=== PATIENT | male | born 1950 | race Caucasian/White ===

== ENCOUNTER → 2023-05-20 10:10 | Outpatient (CLI) | payer MEDICARE, OTHER, SELFPAY ==
--- NOTE | ~2023-05-20 | CT_ITS ---
EXAMINATION: CT lung screening DATE: 05/20/2023 10:31 INDICATION: Z87.891 - Personal history of nicotine dependence TECHNIQUE: Computed tomography (CT) of the chest was performed without intravenous contrast. Addition al 3D reconstructions utilizing coronal maximum intensity projection (MIP) were performed. Automated exposure control and iterative reconstruction technique were employed. The dose-length product was 61 .90 mGy-cm. COMPARISON: None FINDINGS: Mild to moderate emphysema with bronchiectasis and associated pleural parenchymal scarring at the pos terior aspect of the bilateral upper lobes. There is also bandlike atelectasis/scarring at the medial aspect of the right middle lobe. There are geographic regions of tree-in-bud opacities with multiple small centrilobular nodules scattered throughout all of the globes in both lungs consistent with end obronchial spread of disease including atypical pneumonia such as ANALISA. More discrete 8 mm ovoid perif issural nodule along the anterobasilar segment of the right lower lobe. 9 x 7 mm spiculated nodule al chloe a band of atelectasis/scarring in the anterior segment of the left upper lobe. Couple additional 4-5 mm nodules in the apical segment of the left upper lobe. No pulmonary edema or pleural effusion. Heart size is normal. Atherosclerotic coronary artery calcific lesion. No pericardial effusion. Thora cic aorta is normal in caliber. No pathologically enlarged thoracic lymphadenopathy. Gallstone at the neck of the otherwise normal-appearing nondilated gallbladder. Scattered dystrophic calcifications t hroughout the pancreas consistent with sequela of chronic pancreatitis. Mild S-shaped curvature of th e thoracic spine with moderate spondylosis. IMPRESSION: 1. Lung-RADS category 3: Probably benign. Further evaluation is recommended with noncontrast low-dose chest CT in 6 months. 2. Excessive scattered tree-in-bud opacities throughout both lungs consistent with endobronchial spre ad of disease including atypical pneumonia such as ANALISA. Reviewed, dictated and finalized at location L. IMPRESSION: 1. Lung-RADS category 3: Probably benign. Further evaluation is recommended wit h noncontrast low-dose chest CT in 6 months. 2. Excessive scattered tree-in-bud opacities throughout both lungs consistent w ith endobronchial spread of disease including atypical pneumonia such as ANALISA.
== END ==
PROVIDERS: PCP Nurse Practitioner Family; Visit Provider Nurse Practitioner Family
DX: Z12.2 Encounter for screening for malignant neoplasm of respiratory organs (principal); Z87.891 Personal history of nicotine dependence; R91.8 Other nonspecific abnormal finding of lung field
CPT/HCPCS: 71271

== ENCOUNTER → 2023-11-24 10:16 | Outpatient (CLI) | payer MEDICARE, OTHER, SELFPAY ==
--- NOTE | ~2023-11-24 | CT_ITS ---
EXAMINATION:CT chest high resolution wo co DATE: 11/24/2023 10:29 INDICATION: Pulmonary nodule. Other nonspecific abnormal finding in lung field. TECHNIQUE: Computed tomography (CT) of the chest was performed without intravenous contrast. Automate d exposure control and iterative reconstruction technique were employed. The dose-length product (DLP ) was 210.64 mGy-cm. COMPARISON: Chest CT 05/20/2023 FINDINGS: There is moderate emphysema. There is chronic scarring with cavitation at the lung apices. There are widespread centrilobular nodules and tree-in-bud opacities in the lungs. Again seen are sma ll airspace opacities with volume loss in right middle lobe and right lower lobe. There is a stable 9 mm nodule in right lower lobe, likely benign. There is a new 7 mm nodule in right middle lobe. There is a stable 14 mm nodule in right middle lobe. No pleural effusion. The heart size is normal. There are coronary artery calcifications. No pericardial effusion. There is a gallstone in the gallbladder, which is normal in size. Calcifications in the pancreas are consistent with chronic pancreatitis. Th ere is mild thoracic spondylosis. IMPRESSION: 1. Stable diffuse lung disease, likely chronic infection such as Mycobacterium avium intracellulare ( ANALISA). 2. New 7 mm nodule in right middle lobe, probably benign. Noncontrast low-dose chest CT is recommende d in 3-6 months. 3. Moderate emphysema. Reviewed, dictated and finalized at location A. [employer] IMPRESSION: 1. Stable diffuse lung disease, likely chronic infection such as Mycobacterium avium intracellulare (ANALISA). 2. New 7 mm nodule in right middle lobe, probably benign. Noncontrast low-dose chest CT is recommended in 3-6 months. 3. Moderate emphysema.
== END ==
PROVIDERS: PCP Nurse Practitioner Family; Visit Provider Nurse Practitioner Family
DX: R91.8 Other nonspecific abnormal finding of lung field (principal); J43.9 Emphysema, unspecified
CPT/HCPCS: 71250

== ENCOUNTER 2023-12-23 16:01 | Outpatient (CLI) | payer MEDICARE, OTHER, SELFPAY ==
[2023-12-25 11:44] LABS: NIL 0.02 IU/mL; Quantiferon TB Plus, 1T NEGATIVE (NEGATIVE)
== END 2023-12-23 16:02 | disposition home or self-care (01) ==
LOC: ANHLAB 16:09
PROVIDERS: PCP Nurse Practitioner Family; Visit Provider Internal Medicine Pulmonary Disease
DX: R91.8 Other nonspecific abnormal finding of lung field (principal)
CPT/HCPCS: 36415; 86480

== ENCOUNTER 2023-12-24 06:49 | Outpatient (CLI) | payer MEDICARE, OTHER, SELFPAY | END 2023-12-24 06:50 | disposition home or self-care (01) | PROVIDERS: PCP Nurse Practitioner Family; Visit Provider Internal Medicine Pulmonary Disease | DX: J90 Pleural effusion, not elsewhere classified (principal) | CPT/HCPCS: 87015; 87116; 87118; 87153; 87186; 87206 ==

== ENCOUNTER 2023-12-25 06:38 | Outpatient (CLI) | payer MEDICARE, OTHER, SELFPAY | END 2023-12-25 06:39 | disposition home or self-care (01) | LOC: ANHLAB 06:41 | PROVIDERS: PCP Nurse Practitioner Family; Visit Provider Internal Medicine Pulmonary Disease | DX: J90 Pleural effusion, not elsewhere classified (principal) | CPT/HCPCS: 87015; 87116; 87206 ==

== ENCOUNTER 2023-12-26 06:49 | Outpatient (CLI) | payer MEDICARE, OTHER, SELFPAY | END 2023-12-26 06:50 | disposition home or self-care (01) | LOC: ANHLAB 06:51 | PROVIDERS: PCP Nurse Practitioner Family; Visit Provider Internal Medicine Pulmonary Disease | DX: J90 Pleural effusion, not elsewhere classified (principal) | CPT/HCPCS: 87015; 87116; 87206 ==

== ENCOUNTER 2024-01-02 12:24 | Outpatient (CLI) | payer MEDICARE, OTHER, SELFPAY ==
[2024-01-02 13:26] LABS: Alveolar/Arterial O2 Gradient 34.1 mmHg; Carboxyhemoglobin 5.8 % THb (0-2.0); Fractional Inspired Oxygen 21 %; HCO3 ABG 27.6 mEq/l (22.0-26.0); Methemoglobin ABG 0.3 %THb (0-1.5); Oxygen Content ABG 19.6 %vol (16.0-22.0); Oxygen Saturation ABG 93.6 % (95.0-100.0); PCO2 ABG 41.7 mmHg (35.0-45.0); PO2 ABG 65.7 mmHg (80.0-100.0); PO2 FiO2 Ratio Arterial Blood 3.13 %; Reduced Hemoglobin 6.2 %THb (0-5.0); Total Hemoglobin 15.9 g/dL (12.0-18.0); pH ABG 7.438 (7.350-7.450)
[2024-01-02 14:07] LABS: Device ROOM AIR; Modified Allen's Test Pass; Oxyhemoglobin 87.7 % THb (90.0-100.0); Site Drawn RIGHT RADIAL
--- NOTE | 2024-01-03 14:34 | WPDSIXMINUTE ---
Six Minute Walk Procedure Procedure Performed Pulmonary Stress Test (6 min walk) Six Minute Walk Six Minute Walk: This is a 6 minute walk test. The test was performed and interpreted in accordance with the 2014 ERS/ATS task force guidelines. Findings: The patient's resting room air oxygen saturation measured by pulse oximetry was 95% and heart rate was 89 bpm. Patient ambulated for 335 meters and oxygen saturation remained 90 to 94%. Heart rate at the end of the study was 103 bpm. The patient did not qualify for supplemental oxygen at rest or with ambulation. There are no prior studies for comparison.
--- NOTE | 2024-01-03 14:36 | WPDPFTINT ---
PFT Procedure Performed PFT Procedure Performed Spirometry with Pre/Post Bronchodilator Plethysmography (Lung Vol) Diffusing Cap (DLCO) Flow Vol Loop PFT Interpretation This is a pulmonary function test with pre and post-bronchodilator spirometry, plethysmography and diffusing capacity. The test was performed and results interpreted in accordance with the 2019 and 2005 ATS/ERS Task Force guidelines respectively using the Global Lung Function Initiative-2012 reference equations. Patient demonstrated good effort and cooperation. Reproducibility criteria were met. The quality of the pre bronchodilator spirometry maneuver was Grade A and post bronchodilator spirometry maneuver was Grade A. Findings: Spirometry: There is decreased maximal expiratory airflow at all lung volumes with concave expiratory flow tracing. The contour the inspiratory flow tracing is normal. The pre bronchodilator FVC is 4.12 L, 104% predicted. The pre bronchodilator FEV1 is 2.02 L, 68% predicted. The pre bronchodilator FEV1: FVC ratio is 49%. The post bronchodilator FVC is 4.40 L, representing a 7% increase. The post bronchodilator FEV1 is 2.23 L, representing a 10% increase. The post bronchodilator FEV1: FVC ratio is 51%. Plethysmography: The total lung capacity is 8.84 L, 133% predicted. The functional residual capacity is 6.25 L, 178% predicted. The residual volume is 4.46 L, 188% predicted. The residual volume: Total lung capacity ratio is 50%. Diffusing capacity: The diffusing capacity unadjusted for hemoglobin and carboxyhemoglobin is 16.9, 67% predicted. The diffusing capacity adjusted for alveolar volume is 3.22, 80% predicted. Resting room air arterial blood gas: pH 7.44, PaCO2 42, PaO2 66. Impression: There is a moderate obstructive abnormality. There is no significant improvement after inhaling a single dose of albuterol. The increase in residual volume to total lung volume ratio is consistent with hyperinflation from an obstructive abnormality. The diffusing capacity unadjusted for hemoglobin and carboxyhemoglobin is mildly decreased and normalizes when adjusted for alveolar volume. The resting room air arterial blood gas demonstrates a normal pH and PaCO2 with a PO2 below the lower limit of normal for his age but not low enough to qualify for supplemental oxygen. There are no prior studies for comparison
== END 2024-01-02 12:25 | disposition home or self-care (01) ==
LOC: ANHPFT 12:25
PROVIDERS: PCP Nurse Practitioner Family; Visit Provider Internal Medicine Pulmonary Disease
DX: J44.9 Chronic obstructive pulmonary disease, unspecified (principal)
CPT/HCPCS: 36600; 82375; 82805; 83050; 94060; 94618; 94726; 94729

== ENCOUNTER 2024-02-23 10:02 | Outpatient (CLI) | payer MEDICARE, OTHER, SELFPAY ==
--- NOTE | ~2024-02-23 | CT_ITS ---
CT Scan of the Chest without Contrast: Clinical Indication: Abnormal finding of lung field Technique: Contiguous sections were acquired throughout the chest without intravenous contrast. Dose reduction technique was used on this scan by utilizing automated exposure control and iterative recon struction technique. The dose-length product (DLP) was 193.25 mGy-cm. COMPARISON: 11/24/2023 Findings: There is no evidence of any significant mediastinal, hilar or axillary lymphadenopathy. The mediastin al soft tissues appear normal. There is no evidence of pleural or pericardial effusion. There is moderate to advanced emphysema. Scattered tree-in-bud opacities throughout both lungs are es sentially stable from prior exam, compatible with extensive small infection, especially in the lower lobe/lung bases. Areas of peripheral presumed scarring and probable chronic right middle lobe scarrin g are also stable from prior exam. Stable lung nodules noted. Images through the upper abdomen reveal cholelithiasis and pancreatic calcifications consistent with chronic pancreatitis. Impression: Overall, no significant change from prior exam. Extensive acute on chronic small airways infection wi th additional areas of chronic peripheral scarring. Moderate to advanced emphysema. Cholelithiasis. Chronic pancreatitis. Reviewed, dictated and finalized at location . Impression: Overall, no significant change from prior exam. Extensive acute on chronic smal l airways infection with additional areas of chronic peripheral scarring. Moderate to advanced emphysema. Cholelithiasis. Chronic pancreatitis.
== END 2024-02-23 10:03 | disposition home or self-care (01) ==
PROVIDERS: PCP Nurse Practitioner Family; Visit Provider Internal Medicine Pulmonary Disease
DX: R91.8 Other nonspecific abnormal finding of lung field (principal); K80.20 Calculus of gallbladder without cholecystitis without obstruction; J43.9 Emphysema, unspecified; K86.1 Other chronic pancreatitis
CPT/HCPCS: 71250

== ENCOUNTER 2025-05-29 17:00 | Inpatient (IN) | payer MEDICARE, OTHER, SELFPAY ==
[2025-05-29] VITALS (41 sets, daily range): BP systolic 88–117; BP diastolic 47–73; PULSE 94–115; RESP 16–42; TEMP 36.7–36.8; O2SAT 87–98; BMI 22.5
--- NOTE | ~2025-05-29 | XR_ITS ---
EXAMINATION: XR chest 2V Exam Date/Time: 05/29/2025 18:11 CDT HISTORY: cough, shortness of breath X 2days Comparison: CT chest 02/23/2024. RESULT: Lines, tubes, and devices: None. Lungs and pleura: Biapical pleural scarring, worse in the right apex. Increased diffuse reticular op acities and patchy bilateral lower lung groundglass opacities. Chronic appearing reticulonodular opac ities diffusely. Emphysematous change. Cardiomediastinal silhouette: Stable. Other: No acute osseous or upper abdominal finding. IMPRESSION: Worsening diffuse opacities may represent new infection or edema, overlying chronic findings of atypi suzanne infection/respiratory bronchiolitis. Reviewed, dictated and finalized at location [facility]. IMPRESSION: Worsening diffuse opacities may represent new infection or edema, overlying chr onic findings of atypical infection/respiratory bronchiolitis.
--- OUTSIDE RECORDS SUMMARY | 2025-05-29 17:02 | XMS_ITS | Clinical Summary ---
Author Organization [facility] Address [facility] [place] [address] Care Team Providers Care Recreation Center Director Name Role Phone Unavailable Primary Care Provider Unavailabl e Social History Tobacco Use Types Packs/Day Years Used Date Smoking Tobacco: Never Assessed Sex and Gender Information Value Date Recorded Sex Assigned at Not on file Legal Sex Male 11:16 PM CDT Gender Identity Not on file Sexual Orientation Not on file Plan of Treatment Health Maintenance Due Date Last Done Comments Colorectal Cancer Screening Colonoscopy (10 Years) 1950 Hepatitis C 02/03/1970 DTaP, Tdap and Td Vaccines ( 1 - Tdap) 02/03/1971 Pneumococcal Vaccine: 50+ Ye ars (1 of 1 - PCV) 02/03/2002 Zoster Vaccines (1 of 2) 02/03/2002 COVID-19 Vaccine ( - 2023-2 5 season) 2024 RSV Immunization or 60+ Years (1 - 1-dose 75+ series) 02/03/2027 Meningococcal B Vaccine Aged Out No l onger eligible based on patient's age to complete this topic Meningococcal Vaccine Aged Out No melba fabi eligible based on patient's age to complete this topic RSV Immunizations Under 20 Months Aged Out No longer eligible based on patient's age to complete this topic
[2025-05-29 19:02] LABS: Hematocrit 43.6 % (42.0-52.0); Hemoglobin 14.2 g/dL (14.0-18.0); Immature Granulocyte Percent A 0.4 % (0-0.5); Lymphocytes Absolute Auto 1.21 K/mm3 (0.9-3.2); Mean Corpuscular HGB Conc 32.6 g/dl (32-36); Mean Corpuscular Hemoglobin 31.5 pg (26-34); Mean Corpuscular Volume 96.7 fl (80-100); Nucleated Red Blood Cells Absolute Auto 0.000 K/mm3 (0.0-0.012); Nucleated Red Blood Cells Perc 0.0 % (0.0-0.2); Platelet Count Result 323 k/mm3 (150-375); Red Blood Count 4.51 M/mm3 (4.6-6.20); White Blood Count 14.6 K/mm3 (4.5-10.0)
[2025-05-29 19:14] LABS: Alanine Aminotransferase 16 U/L (6-50); Albumin Level 4.2 g/dL (3.5-5.1); Alkaline Phosphatase 66 U/L (38-126); Anion Gap 9 mmol/L (4-12); Aspartate Amino Transferase 24 U/L (17-59); Bilirubin,Total 0.9 mg/dL (0.2-1.3); Blood Urea Nitrogen 15 mg/dL (9-20); Calcium 9.5 mg/dL (8.4-10.2); Carbon Dioxide 27 mmol/L (22-30); Chloride 97 mmol/L (98-107); Estimated CRCL calculation 59 ml/min; Estimated Glomerular Filt Rate > 60; Glucose 122 mg/dL (65-110); Potassium 4.4 mmol/L (3.4-5.0); Sodium 133 mmol/L (137-145); Total Protein 8.2 g/dL (6.3-8.2)
--- NOTE | 2025-05-29 19:26 | ED_ITS ---
HPI - SOB/Dyspnea General Chief Complaint: Dizziness Stated Complaint: dizzy, lightheaded, no appetite Time Seen by Provider: 05/29/25 19:01 History of Present Illness HPI Narrative: 75-year-old male with history of COPD presenting to the emergency depart with productive cough, shortness of breath, subjective fever and chills at home and hypoxemia patient states his symptoms have been going on for last few days. 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 Denies any chest pain or chest discomfort. No nausea, vomiting abdominal pain, back pain. He is otherwise in his normal state of health. No recent illnesses or recent hospitalizations. Had a follow-up visit with his regular PCP last month. Has inhalers at home that he thinks are but no nebulization treatments. No recent steroids. Related Data Allergies Allergy/AdvReac Type Severity Reaction Status Date / Time No Known Allergies Allergy Verified 05/29/25 19:25 Review of Systems 2 Review of Systems: As reviewed above in HPI [facility] Past Medical History Medical History (Updated 05/30/25 @ 00:02 by Cortes Clark MD) Nicotine abuse Pneumonia SOB (shortness of breath) on exertion Prediabetes Elevated PSA Lung cancer screening declined by patient Nocardia infection Emphysema of lung Abnormal CT lung screening Colon cancer screening declined Screening for lung cancer Protein in urine Elevated fasting glucose Adult BMI 25.0-25.9 kg/sq m Nocturia Encounter to establish care Dizziness Shortness of breath Tobacco abuse Hypertension Surgical History Surgical History H/O hernia repair 2009 Family History Family History Father Cancer Hypertension Cerebrovascular accident Mother Hypertension Social History Social History Smoking packs per day: 1 Smoking cigarettes per day: 20.0 Years smoked: 43 Smoking pack-years: 43.00 Smoking status: Current every day smoker Tobacco type: cigarettes Alcohol intake: current Drinks per week: 5 Alcohol use details: [place]- 1-2 drinks daily Substance use: never Substance use type: does not use Lack of Transportation: No Lack of Food: Never True Current Housing: I Have Housing Concerned About Future Housing: No Difficulty Paying Gas/Electric Bills: No Difficulty Paying for Meds: No Currently Unemployed: No Education: High School Diploma/GED Difficulty w/ Childcare or Family Care: No Spiritual care concerns: No Exam 2 Narrative: GENERAL: [Well-appearing, well-nourished, and in no acute distress.] HEAD: [Normocephalic, atraumatic.] EYES: [PERRLA and EOMI.] ENT: Nares clear, no rhinorrhea or epistaxis. Mucous membranes moist. NECK: Supple. CHEST: Coarse breath sounds bilaterally with crackles on the left lower lung and some scattered expiratory wheezes bilaterally HEART: [Regular rate and rhythm]. No murmur heard. [Normal peripheral pulses.] ABDOMEN: [Soft, nondistended], [nontender], [No rigidity or guarding] EXTREMITIES: Normal range of motion. [No edema.] SKIN: Warm, dry, no rash. NEURO: [No focal deficits]. Alert and oriented [x3.] PSYCH: [Normal mood and affect.] Course Vital Signs Vital signs: Vital Signs Temperature 36.7 C 05/29/25 17:29 Pulse Rate 110 H 05/29/25 17:29 Respiratory Rate 20 05/29/25 17:29 Blood Pressure 109/69 05/29/25 17:29 Pulse Oximetry 94 05/29/25 17:29 Oxygen Delivery Room Air 05/29/25 17:29 Temperature 36.8 C 05/29/25 23:54 Pulse Rate 97 05/29/25 23:54 Respiratory Rate 26 H 05/29/25 23:54 Blood Pressure 104/53 L 05/29/25 23:54 Pulse Oximetry 97 05/29/25 23:54 Oxygen Delivery Nasal Cannula 05/29/25 23:52 Oxygen Flow Rate 3 05/29/25 23:52 MDM - SOB/Dyspnea MDM Narrative Medical decision making narrative: 75-year-old male with history of COPD presenting to the emergency depart with productive cough, shortness of breath, subjective fever and chills at home and hypoxemia patient states his symptoms have been going on for last few days. 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 Denies any chest pain or chest discomfort. No nausea, vomiting abdominal pain, back pain. He is otherwise in his normal state of health. No recent illnesses or recent hospitalizations. Had a follow-up visit with his regular PCP last month. Has inhalers at home that he thinks are but no nebulization treatments. No recent steroids. Patient is tachypneic and tachycardic as well as hypoxic 86% on room air. Does not wear oxygen at home. States he previously was evaluated for oxygen but declined it. He has a productive cough that is green and thick, combined with his hypoxemia and tachypnea concern for pneumonia is higher specially with his COPD history. COPD exacerbation underlying possible, bronchitis, pneumothorax, atypical infection. Blood cultures were obtained, lactic acid ordered. He was given a fluid bolus for his tachycardia as well as treatments with respiratory albuterol and ipratropium. Solu-Medrol push ordered. Antibiotics started with Rocephin azithromycin for atypical infection coverage. COVID swabs obtained, laboratory studies ordered and two-view chest x-ray ordered. Patient had some interval improvement after nebulization treatments and felt much better but he is still hypoxic requiring supplemental oxygen. He is currently on antibiotics and received blood cultures, lactic acid drawn and fluids initiated. Labs revealed leukocytosis of 14.6, no significant anemia or platelet concerns. Electrolytes unremarkable. Normal creatinine, normal glucose and LFTs. Negative lactic acid. COVID and RSV/influenza are negative. Chest x-ray shows worsening diffuse opacities consistent with infection. Given patient's hypoxemic respiratory failure requiring oxygen and infectious process he will remain on antibiotics will be admitted to the hospital. I discussed the case with the hospitalist who accepted the patient to telemetry monitored bed at this time and family members comfortable with the plan. Medical Records Attestation: I reviewed the patient's medical records. Lab Data Attestation: I reviewed the patient's lab results. 05/29/25 18:55 05/29/25 18:55 Labs: Lab Results 05/29/25 05/29/25 Range/Units 18:55 19:38 WBC 14.6 H (4.5-10.0) K/mm3 RBC 4.51 L (4.6-6.20) M/mm3 Hgb 14.2 (14.0-18.0) g/dL Hct 43.6 (42.0-52.0) % MCV 96.7 (80-100) fl MCH 31.5 (26-34) pg MCHC 32.6 (32-36) g/dl RDW 13.8 (11.5-14.5) % Plt Count 323 (150-375) k/mm3 MPV 8.6 (7.4-10.4) fl Immature Gran % (Auto) 0.4 (0-0.5) % Neut % (Auto) 80.0 H (45.5-73.1) % Lymph % (Auto) 8.3 L (18.3-44.2) % Cascade % (Auto) 11.1 H (2.6-8.5) % Eos % (Auto) 0.0 (0-4.4) % Baso % (Auto) 0.2 (0.2-1.2) % Lymph # (Auto) 1.21 (0.9-3.2) K/mm3 Cascade # (Auto) 1.6 H (0.1-0.6) K/mm3 Eos # (Auto) 0.0 (0-0.3) K/mm3 Baso # (Auto) 0.0 (0.0-0.1) K/mm3 Abs Immat Gran (auto) 0.06 H (0.00-0.031) K/mm3 Absolute Neuts (auto) 11.6 H (1.3-6.7) K/mm3 Absolute Nucleated RBC 0.000 (0.0-0.012) K/mm3 Nucleated RBC % 0.0 (0.0-0.2) % Sodium 133 L (137-145) mmol/L Potassium 4.4 (3.4-5.0) mmol/L Chloride 97 L (98-107) mmol/L Carbon Dioxide 27 (22-30) mmol/L Anion Gap 9 (4-12) mmol/L BUN 15 (9-20) mg/dL Creatinine 0.93 (0.7-1.3) mg/dL Estim Creat Clear Calc 59 ml/min Estimated GFR > 60 (59 - ) Glucose 122 H (65-110) mg/dL Lactic Acid 1.3 (0.7-2.0) mmol/L Calcium 9.5 (8.4-10.2) mg/dL Total Bilirubin 0.9 (0.2-1.3) mg/dL AST 24 (17-59) U/L ALT 16 (6-50) U/L Alkaline Phosphatase 66 (38-126) U/L Total Protein 8.2 (6.3-8.2) g/dL Albumin 4.2 (3.5-5.1) g/dL Influenza A (RT-PCR) Negative (Negative) Influenza B (RT-PCR) Negative (Negative) SARS-CoV-2 RNA (RT-PCR) Negative (Negative) Imaging Data Attestation: I personally reviewed and interpreted this imaging study as follows: My impression: Impressions Chest X-Ray 05/29/25 20:15 IMPRESSION: Worsening diffuse opacities may represent new infection or edema, overlying chronic findings of atypical infection/respiratory bronchiolitis. Critical Care Time Critical Care Time Critical Care Time: Yes Total Critical Care Time: 35 Discharge Plan Discharge Clinical Impression: Hypoxemia requiring supplemental oxygen, Acute hypoxemic respiratory failure, Acute exacerbation of chronic obstructive pulmonary disease, Atypical pneumonia Patient Disposition: Still a Patient Condition: Stable
--- OUTSIDE RECORDS SUMMARY | 2025-05-29 19:26 | XMS_ITS | Clinical Summary ---
Author Organization [facility] Address [facility] [place] [address] Care Team Providers Care Fourth Hand Name Role Phone Unavailable Primary Care Provider [...]
[2025-05-29] MEDS: ALBUTEROL SULFATE NEB 2.5 MG/3 ML INH 10 MG INHALATION (19:34)
[2025-05-29] MEDS: IPRATROPIUM BR 0.02% INH SOLN 0.5 MG/2.5 ML VIAL 1 MG INHALATION (19:34)
[2025-05-29] MEDS: SODIUM CHLORIDE 0.9% IV 1,000 ML 999 ML IV CONT ×2 (19:43→21:53)
[2025-05-29] MEDS: cefTRIAXone 1 GM in SODIUM CHLORIDE 0.9% IV 50 ML 100 ML IVPB (19:44)
[2025-05-29] MEDS: AZITHROMYCIN IV 500 MG in SODIUM CHLORIDE 0.9% IV 250 ML IVPB (20:10)
[2025-05-29 20:20] LABS: Influenza A QL RT-PCR Negative (Negative); Influenza B QL RT-PCR Negative (Negative); SARS-CoV-2 RNA PCR Negative (Negative)
--- NOTE | 2025-05-29 23:17 | P.HP_ITS ---
H&P: HPI History of Present Illness Date/Time: 05/29/25 23:17 Chief Complaint: Dizziness Narrative: This 75-year-old male patient with history of COPD, hypertension and BPH comes to the emergency room with complaints of feeling dizzy, having chills and subjective fevers for the past couple of days and a productive cough with sputum of light yellow and green. He denies any known ill contacts, recent travels and has not had any nausea/vomiting/diarrhea. Patient is a chronic smoker of at least 50 years 1 pack per day, drinks 1-2 drinks of bourbon daily and does not use any illicit drugs. Patient arrived to the emergency room requiring supplemental oxygen which is something he does not use at home however states he was previously evaluated for it and declined the use. Patient notes that he has seen Dr. Rehman in the past for pulmonology. His workup is significant for WBCs of 14.6, chest x-ray showing worsening diffuse opacities with etiology suspicious for new infection versus edema and overlying findings consistent with infection or respiratory bronchitis. Patient was given an hour long albuterol neb and was given Solu- Medrol 60 mg IV as well as Rocephin and azithromycin. Patient reports that he does feel better post treatment however he continues to require supplemental oxygen to maintain his oxygen saturations at a minimum of 89-91%. Patient is being admitted in the current setting for continued management and pulmonary consultation. Review of Systems Review of Systems: All systems reviewed & are unremarkable except as noted in HPI and below PMFSH Past Medical History Medical History (Updated 05/29/25 @ 23:27 by DIANA Kapadia) Nicotine abuse Pneumonia SOB (shortness of breath) on exertion Prediabetes Elevated PSA Lung cancer screening declined by patient Nocardia infection Emphysema of lung Abnormal CT lung screening Colon cancer screening declined Screening for lung cancer Protein in urine Elevated fasting glucose Adult BMI 25.0-25.9 kg/sq m Nocturia Encounter to establish care Dizziness Shortness of breath Tobacco abuse Hypertension Surgical History Surgical History H/O hernia repair 2009 Family History Family History Father Cancer Hypertension Cerebrovascular accident Mother Hypertension Social History Social History Smoking packs per day: 1 Smoking cigarettes per day: 20.0 Years smoked: 43 Smoking pack-years: 43.00 Smoking status: Current every day smoker Tobacco type: cigarettes Alcohol intake: current Alcohol use details: [place]- 1-2 drinks daily Substance use: never Substance use type: does not use Lack of Transportation: No Lack of Food: Never True Current Housing: I Have Housing Concerned About Future Housing: No Difficulty Paying Gas/Electric Bills: No Difficulty Paying for Meds: No Currently Unemployed: No Education: Trade/Vocational Certificate Difficulty w/ Childcare or Family Care: No Meds Home Medications and Allergies Home Medications ?Medication ?Instructions ?Recorded ?Confirmed ?Type meclizine 25 mg tablet 25 mg PO BID PRN dizziness #180 08/31/21 05/06/25 Rx tabs albuterol sulfate 90 mcg/actuation 1 - 2 inh inhalation Q4-6H PRN 05/05/24 05/06/25 Rx aerosol inhaler shortness of breath or wheezing #8.5 grams amlodipine 10 mg tablet 10 mg PO DAILY #90 tabs 05/06/25 05/06/25 Rx tamsulosin 0.4 mg capsule 0.4 mg PO QHS #90 caps 05/06/25 05/06/25 Rx Allergies Allergy/AdvReac Type Severity Reaction Status Date / Time No Known Allergies Allergy Verified 05/29/25 19:25 Vital Signs Vital Signs - 24 hr 05/29/25 17:29 05/29/25 18:50 05/29/25 19:15 Temperature 98.1 F Pulse Rate 110 H 99 Respiratory Rate 20 16 Blood Pressure 109/69 117/73 Pulse Oximetry 94 92 94 Oxygen Delivery Room Air Room Air Nasal Cannula Oxygen Flow Rate 2 05/29/25 19:16 05/29/25 19:17 05/29/25 19:30 Temperature Pulse Rate 103 H 101 H 103 H Respiratory Rate 24 H 29 H 31 H Blood Pressure 102/60 Pulse Oximetry 90 91 93 Oxygen Delivery Oxygen Flow Rate 05/29/25 19:31 05/29/25 19:38 05/29/25 19:45 Temperature Pulse Rate 101 H 113 H 101 H Respiratory Rate 34 H 20 31 H Blood Pressure 113/64 Pulse Oximetry 94 93 Oxygen Delivery Oxygen Flow Rate 05/29/25 19:46 05/29/25 20:00 05/29/25 20:01 Temperature Pulse Rate 100 108 H 103 H Respiratory Rate 29 H 16 31 H Blood Pressure 102/65 117/59 L Pulse Oximetry 94 97 97 Oxygen Delivery Oxygen Flow Rate 05/29/25 20:15 05/29/25 20:16 05/29/25 20:30 Temperature Pulse Rate 104 H 105 H 110 H Respiratory Rate 27 H 29 H 22 H Blood Pressure 106/54 L Pulse Oximetry 97 97 98 Oxygen Delivery Oxygen Flow Rate 05/29/25 20:31 05/29/25 20:45 05/29/25 20:46 Temperature Pulse Rate 106 H 108 H 108 H Respiratory Rate 30 H 26 H 29 H Blood Pressure 96/60 L 103/55 L Pulse Oximetry 96 96 97 Oxygen Delivery Oxygen Flow Rate 05/29/25 21:00 05/29/25 21:01 05/29/25 21:15 Temperature Pulse Rate 113 H 114 H 111 H Respiratory Rate 32 H 31 H 28 H Blood Pressure 91/50 L Pulse Oximetry 91 91 89 L Oxygen Delivery Oxygen Flow Rate 05/29/25 21:16 05/29/25 21:19 05/29/25 21:30 Temperature Pulse Rate 113 H 110 H 112 H Respiratory Rate 19 32 H 32 H Blood Pressure 88/47 L 95/50 L Pulse Oximetry 87 L 89 L 92 Oxygen Delivery Oxygen Flow Rate 05/29/25 21:31 05/29/25 21:45 05/29/25 21:46 Temperature Pulse Rate 115 H 113 H 108 H Respiratory Rate 34 H 31 H 30 H Blood Pressure 98/56 L 89/62 L Pulse Oximetry 91 88 L 90 Oxygen Delivery Oxygen Flow Rate 05/29/25 22:00 05/29/25 22:02 05/29/25 22:15 Temperature Pulse Rate 109 H 107 H 102 H Respiratory Rate 23 H 28 H 29 H Blood Pressure 91/60 L Pulse Oximetry 91 92 90 Oxygen Delivery Oxygen Flow Rate 05/29/25 22:16 05/29/25 22:30 05/29/25 22:31 Temperature Pulse Rate 103 H 100 100 Respiratory Rate 31 H 39 H 30 H Blood Pressure 100/61 99/58 L Pulse Oximetry 90 90 89 L Oxygen Delivery Oxygen Flow Rate Exam Const: General: comfortable and no acute distress Other: Elderly male patient sitting on the stretcher this time in acute distress. He is requiring supplemental oxygen to maintain his oxygen saturations. HENMT: Face/Nose/Sinus: Normal nares present Mouth: Yes moist mucous membranes Eyes: General: appearance normal, both eyes and all related structures Sclera: sclerae normal Pupils: Equal, round and reactive pupils present Neck: Neck: supple and no JVD Lymphatic: lymphadenopathy not noted Resp: Effort & Inspection: normal respiratory effort Auscultation: wheezes (Expiratory with prolonged expiratory phase) Cardio: Rate: regular rate and tachycardic Rhythm: regular rhythm Heart sounds: no gallops, no murmurs and no rubs GI: GI Palp: Yes Soft to palpation and No Tenderness to palpation present (GI) Auscultation: normal bowel sounds Skin: General skin exam: normal color, no rashes or lesions noted and no erythema Lesions: no lesions noted Rashes: no rashes noted Wounds: no wounds Neuro: Speech: normal speech Motor exam (neuro): 5/5 motor strength present throughout and Normal motor muscle tone present throughout Sensory Exam: normal sensation Extrem: General: normal to inspection, no edema and no pedal edema Psych: Mental Status: mental status grossly normal Affect: normal affect H&P: Results Labs Labs: Short CBC 05/29/25 Range/Units 18:55 WBC 14.6 H (4.5-10.0) K/mm3 Hgb 14.2 (14.0-18.0) g/dL Hct 43.6 (42.0-52.0) % Plt Count 323 (150-375) k/mm3 BMP 05/29/25 18:55 Sodium 133 L Potassium 4.4 Chloride 97 L Carbon Dioxide 27 BUN 15 Creatinine 0.93 Glucose 122 H Calcium 9.5 Liver Function 05/29/25 Range/Units 18:55 Total Bilirubin 0.9 (0.2-1.3) mg/dL AST 24 (17-59) U/L ALT 16 (6-50) U/L Alkaline Phosphatase 66 (38-126) U/L Albumin 4.2 (3.5-5.1) g/dL Assessment and Plan Assessment and plan (1) COPD (chronic obstructive pulmonary disease): Code(s): J44.9 - Chronic obstructive pulmonary disease, unspecified Status: Acute Assessment and Plan: * DuoNeb q.6 hours scheduled * Albuterol q.4 hours p.r.n. shortness of breath or wheezing * Solu-Medrol 40 mg q.6 hours * Continue Rocephin and azithromycin. * Consult Pulmonology * Continue supportive therapy with supplemental oxygen. (2) Pneumonia: Code(s): J18.9 - Pneumonia, unspecified organism Status: Acute Assessment and Plan: * See #1 * Continue IV Abx of Rocephin and Azithromycin * As evidenced per CXR. (3) Nicotine abuse: Code(s): Z72.0 - Tobacco use Status: Chronic Assessment and Plan: * Nicotine patch 21G Daily. (4) Hypertension: Code(s): I10 - Essential (primary) hypertension Status: Chronic Assessment and Plan: * Continue home meds once they are confirmed and verified. Quality VTE Prophylaxis VTE prophylaxis: pharmacologic ordered Hospitalist MIPS Advance Care Plan I have confirmed that the patient's Advanced Care Plan is present, code status is documented, or surrogate decision maker is listed in patient medical record.: Yes Medication Reconciliation I have utilized all available resources to obtain, update and review the patients current medications (includes all prescriptions, OTC, herbals, cannabis, and nutritional supplements).: Yes
--- NOTE | 2025-05-29 23:46 | ADMGEN ---
This patient, Garry Moulton, was admitted to Medical Room 253-01. Patient/family oriented to hospital policies and general routines including ID bracelet, bed and alarms, visiting hours, pain management, procedures, bathroom and other care routines, personal items, smoking policy, room service/diet, and visiting hours. Information on how to activate the Rapid Response Team has been discussed. Patient/Family are encouraged to report perceived risks to care and to ask questions if they do not understand what they are told or what they should do.
[2025-05-30] VITALS (22 sets, daily range): BP systolic 113–126; BP diastolic 51–78; PULSE 66–105; RESP 12–22; TEMP 36.2–36.6; O2SAT 90–99
[2025-05-30] MEDS: IPRATROPIUM 0.5 MG/ALBUTEROL SULFATE 2.5 MG AMPUL.NEB 3 ML INHALATION ×4 (01:55→20:29)
[2025-05-30 05:23] LABS: Hematocrit 38.4 % (42.0-52.0); Hemoglobin 12.1 g/dL (14.0-18.0); Immature Granulocyte Percent A 0.5 % (0-0.5); Lymphocytes Absolute Auto 0.32 K/mm3 (0.9-3.2); Mean Corpuscular HGB Conc 31.5 g/dl (32-36); Mean Corpuscular Hemoglobin 31.6 pg (26-34); Mean Corpuscular Volume 100.3 fl (80-100); Nucleated Red Blood Cells Absolute Auto 0.000 K/mm3 (0.0-0.012); Nucleated Red Blood Cells Perc 0.0 % (0.0-0.2); Platelet Count Result 290 k/mm3 (150-375); Red Blood Count 3.83 M/mm3 (4.6-6.20); White Blood Count 10.7 K/mm3 (4.5-10.0)
[2025-05-30 05:32] LABS: INR 1.1; Partial Thromboplastin Time 35.1 Seconds (22.3-36.8); Prothrombin Time 14.2 Seconds (11.1-14.7)
[2025-05-30 06:42] LABS: Alanine Aminotransferase 14 U/L (6-50); Albumin Level 3.3 g/dL (3.5-5.1); Alkaline Phosphatase 61 U/L (38-126); Anion Gap 6 mmol/L (4-12); Aspartate Amino Transferase 20 U/L (17-59); Bilirubin,Total 0.3 mg/dL (0.2-1.3); Blood Urea Nitrogen 12 mg/dL (9-20); Calcium 8.7 mg/dL (8.4-10.2); Carbon Dioxide 23 mmol/L (22-30); Chloride 104 mmol/L (98-107); Estimated CRCL calculation 86 ml/min; Estimated Glomerular Filt Rate > 60; Glucose 182 mg/dL (65-110); Magnesium 2.4 mg/dL (1.6-2.3); Potassium 4.3 mmol/L (3.4-5.0); Sodium 133 mmol/L (137-145); Total Protein 6.9 g/dL (6.3-8.2)
--- NOTE | 2025-05-30 07:03 | PM.IMPN ---
Progress Note: A&P Assessment and Plan (1) Acute respiratory failure with hypoxia: Code(s): J96.01 - Acute respiratory failure with hypoxia Status: Acute Assessment and Plan: - SpO2 87% on admission, placed on 3L NC. Baseline RA. - Oxygen supplementation: weaned back to room air - Suspected cause: COPD exacerbation with cocurrent pneumonia - CXR: Worsening diffuse opacities may represent new infection or edema, overlying chronic findings of atypical infection/respiratory bronchiolitis. Resolved. Weaned back to room air with stable oxygen saturations. (2) COPD (chronic obstructive pulmonary disease): Qualifiers: COPD type: COPD with acute exacerbation Qualified Code(s): J44.1 - Chronic obstructive pulmonary disease with (acute) exacerbation Code(s): J44.9 - Chronic obstructive pulmonary disease, unspecified Status: Acute Assessment and Plan: CXR: Worsening diffuse opacities may represent new infection or edema, overlying chronic findings of atypical infection/respiratory bronchiolitis. Expiratory wheezing on exam. Continue Solu-Medrol 40 mg q.6 hours Continue Rocephin and azithromycin for cocurrent pneumonia Duonebz q6H and Albuterol q4H prn Monitor vital signs, I&Os, neuro status and patient is a fall risk Monitor serum electrolytes, cultures and CBC Monitor Oxygen saturation, Oxygen via NC; wean oxygen as tolerated, keep SpO2 greater than 88% (3) Pneumonia: Code(s): J18.9 - Pneumonia, unspecified organism Status: Acute Assessment and Plan: CXR: Worsening diffuse opacities may represent new infection or edema, overlying chronic findings of atypical infection/respiratory bronchiolitis. - Complicating Factors: COPD exacerbation - started on CAP tx: azithromycin ceftriaxone on 05/29 - Viral PCR: negative for Flu/COVID/RSV - Legionella, mycoplasma and pneumococcal ordered - Sputum culture ordered - Keep SpO2 greater than 88% - IS, pep therapy and Mucinex - Monitor vital signs, I&Os, neuro status and patient is a fall risk - Follow WBC, serum electrolytes, temperature curves and cultures (4) Nicotine abuse: Code(s): Z72.0 - Tobacco use Status: Chronic Assessment and Plan: Nicotine patch 21G Daily. (5) Hypertension: Code(s): I10 - Essential (primary) hypertension Status: Chronic Assessment and Plan: Antihypertensives remain on hold as patient was hypotensive on admission and BP remains stable despite being off of the medication a this time Continue hold amlodipine 10 mg daily Continue to closely monitor Time Spent With Patient Time with patient: 25 - 35 minutes Subjective Date/time seen: 05/30/25 07:03 Interval history: 75-year-old male patient with history of COPD, hypertension and BPH presents to the hospital with complaints of feeling dizzy, having chills and subjective fevers for the past couple of days and a productive cough with sputum of light yellow and green. Patient is pleasant sitting up comfortably in bed. He states that the shortness of [place] has resolved and the cough is improving. During assessment was able to wean patient off of oxygen supplementation back to baseline room air with saturations of 93%. Patient had no other complaints denying chest pain, palpitations, nausea/vomiting, and abdominal pain. Review of Systems Review of Systems: All systems reviewed & are unremarkable except as noted in HPI and below Exam Narrative: AF HR 73 RR14 SpO2 93 RA BP 120/90 General:male in no acute respiratory distress who is nontoxic appearing, sitting up in bed. HEENT: Normocephalic. Atraumatic. Extraocular movement intact. Sclera clear and anicteric. No facial asymmetry. Chest: Lungs with expiratory wheezing throughout and diminished bases to auscultation bilaterally. CV: Heart was regular rate and rhythm. Abd: Abdomen was soft. Nontender. Nondistended. Positive bowel sounds. Ext: No clubbing, cyanosis, or edema. DP pulses bilaterally. Neuro: Patient is alert and oriented x4. Speech is clear. Objective Data Vital Signs Vital Signs: Vital Signs - 24 hr 05/29/25 17:29 05/29/25 18:50 05/29/25 19:15 Temperature 98.1 F Pulse Rate 110 H 99 Respiratory Rate 20 16 Blood Pressure 109/69 117/73 Pulse Oximetry 94 92 94 Oxygen Delivery Room Air Room Air Nasal Cannula Oxygen Flow Rate 2 Fraction of Inspired Oxygen 05/29/25 19:16 05/29/25 19:17 05/29/25 19:30 Temperature Pulse Rate 103 H 101 H 103 H Respiratory Rate 24 H 29 H 31 H Blood Pressure 102/60 Pulse Oximetry 90 91 93 Oxygen Delivery Oxygen Flow Rate Fraction of Inspired Oxygen 05/29/25 19:31 05/29/25 19:38 05/29/25 19:45 Temperature Pulse Rate 101 H 113 H 101 H Respiratory Rate 34 H 20 31 H Blood Pressure 113/64 Pulse Oximetry 94 93 Oxygen Delivery Oxygen Flow Rate Fraction of Inspired Oxygen 05/29/25 19:46 05/29/25 20:00 05/29/25 20:01 Temperature Pulse Rate 100 108 H 103 H Respiratory Rate 29 H 16 31 H Blood Pressure 102/65 117/59 L Pulse Oximetry 94 97 97 Oxygen Delivery Oxygen Flow Rate Fraction of Inspired Oxygen 05/29/25 20:15 05/29/25 20:16 05/29/25 20:30 Temperature Pulse Rate 104 H 105 H 110 H Respiratory Rate 27 H 29 H 22 H Blood Pressure 106/54 L Pulse Oximetry 97 97 98 Oxygen Delivery Oxygen Flow Rate Fraction of Inspired Oxygen 05/29/25 20:31 05/29/25 20:45 05/29/25 20:46 Temperature Pulse Rate 106 H 108 H 108 H Respiratory Rate 30 H 26 H 29 H Blood Pressure 96/60 L 103/55 L Pulse Oximetry 96 96 97 Oxygen Delivery Oxygen Flow Rate Fraction of Inspired Oxygen 05/29/25 21:00 05/29/25 21:01 05/29/25 21:15 Temperature Pulse Rate 113 H 114 H 111 H Respiratory Rate 32 H 31 H 28 H Blood Pressure 91/50 L Pulse Oximetry 91 91 89 L Oxygen Delivery Oxygen Flow Rate Fraction of Inspired Oxygen 05/29/25 21:16 05/29/25 21:19 05/29/25 21:30 Temperature Pulse Rate 113 H 110 H 112 H Respiratory Rate 19 32 H 32 H Blood Pressure 88/47 L 95/50 L Pulse Oximetry 87 L 89 L 92 Oxygen Delivery Oxygen Flow Rate Fraction of Inspired Oxygen 05/29/25 21:31 05/29/25 21:45 05/29/25 21:46 Temperature Pulse Rate 115 H 113 H 108 H Respiratory Rate 34 H 31 H 30 H Blood Pressure 98/56 L 89/62 L Pulse Oximetry 91 88 L 90 Oxygen Delivery Oxygen Flow Rate Fraction of Inspired Oxygen 05/29/25 22:00 05/29/25 22:02 05/29/25 22:15 Temperature Pulse Rate 109 H 107 H 102 H Respiratory Rate 23 H 28 H 29 H Blood Pressure 91/60 L Pulse Oximetry 91 92 90 Oxygen Delivery Oxygen Flow Rate Fraction of Inspired Oxygen 05/29/25 22:16 05/29/25 22:30 05/29/25 22:31 Temperature Pulse Rate 103 H 100 100 Respiratory Rate 31 H 39 H 30 H Blood Pressure 100/61 99/58 L Pulse Oximetry 90 90 89 L Oxygen Delivery Oxygen Flow Rate Fraction of Inspired Oxygen 05/29/25 22:32 05/29/25 22:45 05/29/25 22:46 Temperature Pulse Rate 100 98 98 Respiratory Rate 34 H 25 H 42 H Blood Pressure 104/64 Pulse Oximetry 89 L 90 89 L Oxygen Delivery Oxygen Flow Rate Fraction of Inspired Oxygen 05/29/25 23:00 05/29/25 23:01 05/29/25 23:15 Temperature Pulse Rate 94 97 100 Respiratory Rate 25 H 29 H Blood Pressure 103/63 Pulse Oximetry 89 L 91 92 Oxygen Delivery Oxygen Flow Rate Fraction of Inspired Oxygen 05/29/25 23:52 05/29/25 23:54 05/30/25 00:00 Temperature 98.3 F Pulse Rate 97 97 Respiratory Rate 26 H Blood Pressure 104/53 L Pulse Oximetry 97 97 Oxygen Delivery Nasal Cannula Oxygen Flow Rate 3 Fraction of Inspired Oxygen 05/30/25 00:15 05/30/25 01:59 05/30/25 02:01 Temperature Pulse Rate 97 98 98 Respiratory Rate 20 20 Blood Pressure Pulse Oximetry 97 91 Oxygen Delivery Nasal Cannula Nasal Cannula Oxygen Flow Rate 3 3 Fraction of Inspired Oxygen 32 05/30/25 04:00 05/30/25 05:34 05/30/25 05:37 Temperature 97.1 F L Pulse Rate 82 105 H Respiratory Rate 22 H Blood Pressure 126/78 Pulse Oximetry 99 99 Oxygen Delivery Nasal Cannula Oxygen Flow Rate 2.5 Fraction of Inspired Oxygen Intake/Output Intake/Output: Intake & Output 05/27/25 05/28/25 05/29/25 05/30/25 23:59 23:59 23:59 23:59 Intake Total 2300 Output Total 350 Balance 2300 -350 Meds/Results Medications: Active Medications Generic Name Dose Route Start Last Admin Trade Name Freq PRN Reason Stop Dose Admin Acetaminophen 650 mg 05/29/25 21:44 Acetaminophen 325 Mg Tablet PO Q4H PRN Mild Pain (1-3) or Fever Albuterol 2.5 mg 05/29/25 23:29 Albuterol Sulfate Neb 2.5 Mg/3 Ml Inh INHALATION Q4HRT PRN Shortness Of Breath Albuterol/Ipratropium 3 ml 05/30/25 02:00 05/30/25 01:55 Ipratropium 0.5 Mg/Albuterol Sulfate 2.5 Mg Ampul.Neb 3 Ml INHALATION 3 ml Q6HRT LAURA Administration Enoxaparin Sodium 40 mg 05/30/25 09:00 Enoxaparin 40 Mg/0.4 Ml Syringe SUB-Q DAILY [facility] Ceftriaxone Sodium 1 gm/ 50 mls @ 100 mls/hr 05/30/25 20:00 Sodium Chloride IVPB Q24H LAURA Azithromycin 500 mg/ Sodium 250 mls @ 250 mls/hr 05/30/25 20:00 Chloride IVPB Q24H LAURA Methylprednisolone Sodium Succinate 40 mg 05/30/25 00:00 05/30/25 05:45 Methylprednisolone Sod Succ 40 Mg Vial IV PUSH 40 mg Q6HR LAURA Administration Nicotine 1 patch 05/30/25 09:00 Nicotine (*Pbkc) 21 Mg Patch TRANSDERM DAILY [facility] Ondansetron HCl 4 mg 05/29/25 21:44 Ondansetron Inj 4 Mg/2 Ml Vial IV PUSH Q4H PRN Nausea Radiology Results: ITS Impressions Chest X-Ray 05/29/25 20:15 IMPRESSION: Worsening diffuse opacities may represent new infection or edema, overlying chronic findings of atypical infection/respiratory bronchiolitis. Labs Labs: Laboratory Results - last 24 hr 05/29/25 05/29/25 05/30/25 18:55 19:38 04:59 WBC 14.6 H 10.7 H RBC 4.51 L 3.83 L Hgb 14.2 12.1 L Hct 43.6 38.4 L MCV 96.7 100.3 H MCH 31.5 31.6 MCHC 32.6 31.5 L RDW 13.8 13.9 Plt Count 323 290 MPV 8.6 9.1 Immature Gran % (Auto) 0.4 0.5 Neut % (Auto) 80.0 H 93.6 H Lymph % (Auto) 8.3 L 3.0 L Stephens % (Auto) 11.1 H 2.8 Eos % (Auto) 0.0 0.0 Baso % (Auto) 0.2 0.1 L Lymph # (Auto) 1.21 0.32 L Stephens # (Auto) 1.6 H 0.3 Eos # (Auto) 0.0 0.0 Baso # (Auto) 0.0 0.0 Abs Immat Gran (auto) 0.06 H 0.05 H Absolute Neuts (auto) 11.6 H 10.1 H Absolute Nucleated RBC 0.000 0.000 Nucleated RBC % 0.0 0.0 PT 14.2 INR 1.1 APTT 35.1 Sodium 133 L 133 L Potassium 4.4 4.3 Chloride 97 L 104 Carbon Dioxide 27 23 Anion Gap 9 6 BUN 15 12 Creatinine 0.93 0.64 L Estim Creat Clear Calc 59 86 Estimated GFR > 60 > 60 Glucose 122 H 182 H Lactic Acid 1.3 Calcium 9.5 8.7 Magnesium 2.4 H Total Bilirubin 0.9 0.3 AST 24 20 ALT 16 14 Alkaline Phosphatase 66 61 Total Protein 8.2 6.9 Albumin 4.2 3.3 L Influenza A (RT-PCR) Negative Influenza B (RT-PCR) Negative SARS-CoV-2 RNA (RT-PCR) Negative Quality VTE Prophylaxis VTE prophylaxis: pharmacologic ordered
[2025-05-30] MEDS: guaiFENesin 12 HR 600 MG TABCR PO ×2 (08:47→20:02)
[2025-05-30] MEDS: AZITHROMYCIN IV 500 MG in SODIUM CHLORIDE 0.9% IV 250 ML IVPB (19:54)
[2025-05-30] MEDS: cefTRIAXone 1 GM in SODIUM CHLORIDE 0.9% IV 50 ML 100 ML IVPB (21:32)
[2025-05-31] VITALS (11 sets, daily range): BP systolic 109–123; BP diastolic 55–66; PULSE 66–98; RESP 12–20; TEMP 36.5–36.7; O2SAT 90–95
[2025-05-31] MEDS: IPRATROPIUM 0.5 MG/ALBUTEROL SULFATE 2.5 MG AMPUL.NEB 3 ML INHALATION ×3 (01:22→13:14)
[2025-05-31 05:25] LABS: Hematocrit 37.7 % (42.0-52.0); Hemoglobin 12.3 g/dL (14.0-18.0); Mean Corpuscular HGB Conc 32.6 g/dl (32-36); Mean Corpuscular Hemoglobin 31.9 pg (26-34); Mean Corpuscular Volume 97.7 fl (80-100); Platelet Count Result 341 k/mm3 (150-375); Red Blood Count 3.86 M/mm3 (4.6-6.20); White Blood Count 13.1 K/mm3 (4.5-10.0)
[2025-05-31 05:45] LABS: Alanine Aminotransferase 30 U/L (6-50); Albumin Level 3.2 g/dL (3.5-5.1); Alkaline Phosphatase 59 U/L (38-126); Anion Gap 6 mmol/L (4-12); Aspartate Amino Transferase 40 U/L (17-59); Bilirubin,Total 0.2 mg/dL (0.2-1.3); Blood Urea Nitrogen 22 mg/dL (9-20); Calcium 9.0 mg/dL (8.4-10.2); Carbon Dioxide 24 mmol/L (22-30); Chloride 107 mmol/L (98-107); Estimated CRCL calculation 84 ml/min; Estimated Glomerular Filt Rate > 60; Glucose 154 mg/dL (65-110); Potassium 3.8 mmol/L (3.4-5.0); Sodium 137 mmol/L (137-145); Total Protein 6.5 g/dL (6.3-8.2)
[2025-05-31] MEDS: guaiFENesin 12 HR 600 MG TABCR PO (08:18)
--- NOTE | 2025-05-31 13:56 | P.DS_ITS ---
DS: Admitting Diagnosis Discharge Date 05/31/2025 Admitting Diagnosis acute respiratory failure with hypoxia COPD pneumonia nicotine abuse htn DS: Discharge Diagnosis Discharge Diagnosis (1) Acute respiratory failure with hypoxia: Code(s): J96.01 - Acute respiratory failure with hypoxia Status: Acute (2) COPD (chronic obstructive pulmonary disease): Qualifiers: COPD type: COPD with acute exacerbation Qualified Code(s): J44.1 - Chronic obstructive pulmonary disease with (acute) exacerbation Code(s): J44.9 - Chronic obstructive pulmonary disease, unspecified Status: Acute (3) Pneumonia: Code(s): J18.9 - Pneumonia, unspecified organism Status: Acute (4) Nicotine abuse: Code(s): Z72.0 - Tobacco use Status: Chronic (5) Hypertension: Code(s): I10 - Essential (primary) hypertension Status: Chronic DS: Summary Hospital Course Reason for hospitalization: acute respiratory failure with hypoxia COPD pneumonia nicotine abuse htn Hospital Course: 75-year-old male patient with history of COPD, hypertension and BPH presents to the hospital with complaints of feeling dizzy, having chills and subjective fevers for the past couple of days and a productive cough with sputum of light yellow and green. SpO2 87% on admission, placed on 3L NC. Baseline RA. Not meeting sepsis criteria. CXR showed worsening diffuse opacities may represent new infection or edema, overlying chronic findings of atypical infection/respiratory bronchiolitis. Noted wheezing on admission, started on steroids for COPD exacerbation. Started on IV antibiotics for cocurrent pneu monia. Patient weaned back to room air during admission. At time of discharge he denied any shortness of breath. Patient was transitioned to oral antibiotics and oral steroids to complete the course for pneumonia and COPD exacerbation. At time of discharge patient stated he feels at his baseline and is ready for discharge at this time. He has no complaints denying chest pain, shortness a breath, palpitations, nausea/vomiting, and abdominal pain. He was able to ambulate throughout the room during his final assessment and denies any dizziness/lightheadedness or weakness. Patient discharged home in a stable condition. He is to follow-up with his primary care provider in 1 week. Status at Discharge Functional status at discharge: independent ambulation Time Spent with Patient Time attestation: Total time spent providing and/or coordinating discharge services: Time spent: Greater than 30 minutes Exam Narrative: AF HR 73 RR14 SpO2 93 RA BP 120/90 General:male in no acute respiratory distress who is nontoxic appearing, sitting up on side of the bed and ambulating without assistance throughout the room. HEENT: Normocephalic. Atraumatic. Extraocular movement intact. Sclera clear and anicteric. No facial asymmetry. Chest: Lungs clear to to auscultation bilaterally. CV: Heart was regular rate and rhythm. Abd: Abdomen was soft. Nontender. Nondistended. Positive bowel sounds. Ext: No clubbing, cyanosis, or edema. DP pulses bilaterally. Neuro: Patient is alert and oriented x4. Speech is clear. DS: Data Data Completed and Pending Completed studies during hospitalization: chest xr Labs on day of discharge: Labs from last 24 hours 05/31/25 05/30/25 04:58 04:58 WBC 13.1 H RBC 3.86 L Hgb 12.3 L Hct 37.7 L MCV 97.7 MCH 31.9 MCHC 32.6 RDW 13.9 Plt Count 341 MPV 9.3 Sodium 137 Potassium 3.8 Chloride 107 Carbon Dioxide 24 Anion Gap 6 BUN 22 H D Creatinine 0.66 L Estim Creat Clear Calc 84 Estimated GFR > 60 Glucose 154 H Calcium 9.0 Total Bilirubin 0.2 AST 40 ALT 30 Alkaline Phosphatase 59 Total Protein 6.5 Albumin 3.2 L M.pneumoniae IgM Titer <770 Discharge Plan Discharge Attending physician on discharge: London Lema Consulting providers: Sari Poe Discharging Clinician: Sari Poe Anticipated Discharge Date/Time: 05/31/25 13:51 Patient Disposition: Home Activity: as tolerated Diet: as tolerated and heart healthy Discharge Instructions: Discharge disposition: Patient admitted to the hospital for shortness of breath and new oxygen requirement Weaned back to baseline room air Diagnosed with a COPD exacerbation and pneumonia Take medications as prescribed Prednisone 40 mg, course to be completed on 06/05 Continue inhaler as previously prescribed Azithromycin daily Augmentin twice a day Attached is information on these medications Follow up with PCP in 1 week and call for pulmonology appointment Monitor blood pressures, document daily blood pressure reading for PCP follow up Continue holding amlodipine until follow up with PCP If blood pressures start to become elevated when not taking amlodipine call PCP and resume medication Take caution while standing, rising, or moving Change positions slowly taking a break between each position change If you standing feel dizzy sit back down and take a break Encouraged to continue with yearly vaccinations Return to the emergency department if he developed sudden shortness of breath, chest pain, nausea, vomiting, upset stomach or intractable diarrhea Return to the emergency department if you develop fever greater than 100.5 Follow-up with the primary care physician within 1-2 weeks Thank you for [facility] for your healthcare needs Patient Instructions: Antibiotic Form, Prednisone (By mouth), Amoxicillin/Clavulanate Potassium (By mouth), Azithromycin (By mouth), COPD (Chronic Obstructive Pulmonary Disease) (DC), Pneumonia (DC), Chronic Lung Disease and Infection Prevention (DC) Patient Language: Tajik Stand Alone Forms: General Discharge Information Follow-up/Referrals: Anna Scherer, OFFICE MACHINE SERVICER APPRENTICE [Primary Care Provider] - 1 Week Discharge Medications: New azithromycin 500 mg tablet 500 mg PO DAILY 3 Days Qty: 3 0RF amoxicillin-pot clavulanate 875-125 mg tablet 1 tablet PO Q12H Qty: 10 0RF prednisone 20 mg tablet 40 mg PO DAILY Qty: 10 0RF Continued meclizine 25 mg tablet 25 mg PO BID PRN (Reason: dizziness) Qty: 180 1RF tamsulosin 0.4 mg capsule 0.4 mg PO QHS Qty: 90 3RF albuterol sulfate 90 mcg/actuation HFA aerosol inhaler 1 - 2 inh inhalation Q4-6H PRN (Reason: shortness of breath or wheezing) Qty: 8.5 11RF Held amlodipine 10 mg tablet 10 mg PO DAILY Qty: 90 3RF Hold Instructions: Resume on 06/20/25. Hold until PCP follow up. Date of admission: 05/29/25 21:44 Primary Care Provider: Anna Scherer Admitting Provider: Peter Johnson Attending physician on admission: Peter Johnson Condition: Stable Hospitalist MIPS Heart Failure (Exclusion) Patient has history of Heart Transplant or Left Ventricular Assistive Device?: No IF YES, STOP HERE Heart Failure (Qualifier) Patient has current or prior documentation of LVEF less than or equal to 40%, or mod/servere depressed LVSF?: No IF NO, STOP HERE
== END 2025-05-31 14:58 | disposition home or self-care (01) | DRG 193 ==
LOC: ANHED 19:32 → ANH2MED 23:17
PROVIDERS: Emergency Medicine; Nurse Practitioner Adult Health; Admitting Provider Internal Medicine; Emergency Provider Student in an Organized Health Care Education/Training Program; PCP Nurse Practitioner Family; Visit Provider Student in an Organized Health Care Education/Training Program
DX: J18.9 Pneumonia, unspecified organism (principal); J96.01 Acute respiratory failure with hypoxia; J44.1 Chronic obstructive pulmonary disease with (acute) exacerbation; F17.210 Nicotine dependence, cigarettes, uncomplicated; I10 Essential (primary) hypertension; J43.9 Emphysema, unspecified; N40.0 Benign prostatic hyperplasia without lower urinary tract symptoms; Z20.822 Contact with and (suspected) exposure to COVID-19
CPT/HCPCS: 36415; 71046; 80053; 83605; 83735; 85025; 85027; 85610; 85730; 86738; 87040; 87449; 87636; 87899; 94640; 94668; 96365; 96367; 96375; 99291; A9270; J0456; J0696; J2919; J7030; J7050

== ENCOUNTER 2025-06-11 11:00 | Inpatient (IN) | payer MEDICARE, OTHER, SELFPAY ==
[2025-06-11] VITALS (13 sets, daily range): BP systolic 102–143; BP diastolic 59–70; PULSE 63–100; RESP 18–22; TEMP 36.2–36.7; O2SAT 90–97; BMI 22.3
--- NOTE | ~2025-06-11 | XR_ITS ---
XR chest 2V 06/11/2025 11:56 Indication: Shortness of breath Procedure: PA and lateral views of the chest Comparison: 05/29/2025 Findings: There is been progression of patchy bilateral pneumonia. Heart size normal. No significant effusion. No pneumothorax. Impression: 1: Significant interval progression of patchy bilateral pneumonia. Reviewed, dictated and finalized at location O. Impression: 1: Significant interval progression of patchy bilateral pneumonia.
--- NOTE | ~2025-06-11 | CT_ITS ---
EXAMINATION: CT diagnostic chest wo con DATE: 06/14/2025 13:36 INDICATION: Further evaluate pneumonia. TECHNIQUE: Computed tomography (CT) of the chest was performed without intravenous contrast. The dose-length product was 158.89 mGy-cm. COMPARISON: CT chest studies from 02/23/2024, 11/24/2019 02/07/2023 FINDINGS: No enlarged mediastinal or hilar lymph nodes. Heart is mildly enlarged. There are a few coronary artery calcifications, unchanged. Chronic pancreatitis, unchanged. Stable too small to characterize low-attenuation lesion in the lateral segment of the left lobe of the liver. Thoracic aorta is not aneurysmal but is partially calcified. Grossly stable emphysema. Tracheal bronchial tree is patent. Biapical scarring, unchanged. Interval development of interval development of several spiculated masses scattered throughout both lungs including a 1.4 cm including a mass in the lingula and a 2.4 cm because mass in the right lower lobe. No pneumothorax. Tiny right-sided pleural effusion. Bones appear osteopenic. Multilevel degenerative change scattered throughout the visualized spine. IMPRESSION: 1. Interval development of several spiculated masses scattered throughout both lungs, the largest measures 2.4 cm. The findings are suspicious for a malignant process. Differential includes inflammatory/infectious process. A biopsy of the largest new mass in the left lung and in the right lung is recommended. 2. No lymphadenopathy in the chest. 3. Grossly stable. 4. Tiny right-sided pleural effusion. Reviewed, dictated and finalized at location Q. IMPRESSION: 1. Interval development of several spiculated masses scattered throughout both lungs, the largest measures 2.4 cm. The findings are suspicious for a malignant process. Differential includes inflammatory/infectious process. A biopsy of th e largest new mass in the left lung and in the right lung is recommended. 2. No lymphadenopathy in the chest. 3. Grossly stable. 4. Tiny right-sided pleural effusion.
--- OUTSIDE RECORDS SUMMARY | 2025-06-11 11:02 | XMS_ITS | Clinical Summary ---
Author Organization [facility] Address [facility], [facility] [place] [address] Care Team Providers Care Gamma Facilities Operator Name Role Phone Unavailable Primary Care Provider [...]
--- NOTE | 2025-06-11 11:52 | PC.NURSE ---
Returned from radiology
--- NOTE | 2025-06-11 12:14 | ECG_ITS ---
Test Date: 2025-06-11 12:37:25 Measurements Intervals [place] Rate: 94 P: 44 AR: 114 QRS: 31 QRSD: 90 T: 7 QT: 342 QTc: 428 Interpretive Statements SINUS RHYTHM WITH SHORT AR INTERVAL DELAYED PRECORDIAL R/S TRANSITION BORDERLINE ST-T WAVE ABNORMALITY- INFERIOR LEADS BASELINE ARTIFACT- I, II, III, AVR, AVL, AVF, V1, V4-V6 BORDERLINE ECG No previous ECG available for comparison Electronically Signed On 06-11-2025 17:06:00 CDT by Bakari Mehta D.O.
[2025-06-11 12:41] LABS: Hematocrit 36.8 % (42.0-52.0); Hemoglobin 12.1 g/dL (14.0-18.0); Immature Granulocyte Percent A 0.6 % (0-0.5); Lymphocytes Absolute Auto 1.16 K/mm3 (0.9-3.2); Mean Corpuscular HGB Conc 32.9 g/dl (32-36); Mean Corpuscular Hemoglobin 31.5 pg (26-34); Mean Corpuscular Volume 95.8 fl (80-100); Nucleated Red Blood Cells Absolute Auto 0.000 K/mm3 (0.0-0.012); Nucleated Red Blood Cells Perc 0.0 % (0.0-0.2); Platelet Count Result 393 k/mm3 (150-375); Red Blood Count 3.84 M/mm3 (4.6-6.20); White Blood Count 17.1 K/mm3 (4.5-10.0)
[2025-06-11] MEDS: IPRATROPIUM 0.5 MG/ALBUTEROL SULFATE 2.5 MG AMPUL.NEB 3 ML INHALATION ×2 (12:42→21:01)
--- NOTE | 2025-06-11 12:53 | ED.GENADULT ---
HPI - General Adult General Chief complaint: Shortness of Breath/Dyspnea Stated complaint: i have a relapse of pneumonia Time Seen by Provider: 06/11/25 12:09 History of Present Illness HPI narrative: Patient 75-year-old gentleman presents emergency department chief complaint of possible recurrent pneumonia patient reports he was in the hospital recently was discharged home on Augmentin Zithromax and reports that he is symptoms have come back over the last few days patient reports showed a productive cough and feels short of breath. Patient denies the patient reports that feels as though his symptoms have returned Related Data Allergies Allergy/AdvReac Type Severity Reaction Status Date / Time No Known Allergies Allergy Verified 06/11/25 11:01 Review of Systems Review of Systems: A 10 system review of systems was completed on the patient and is negative except for what is stated in the HPI. Nursing and ancillary documentation was reviewed. [facility] Past Medical History Medical History Nicotine abuse Pneumonia SOB (shortness of breath) on exertion Prediabetes Elevated PSA Lung cancer screening declined by patient Nocardia infection Emphysema of lung Abnormal CT lung screening Colon cancer screening declined Screening for lung cancer Protein in urine Elevated fasting glucose Adult BMI 25.0-25.9 kg/sq m Nocturia Encounter to establish care Dizziness Shortness of breath Tobacco abuse Hypertension Surgical History Surgical History H/O hernia repair 2009 Family History Family History Father Cancer Hypertension Cerebrovascular accident Mother Hypertension Social History Social History Smoking packs per day: 1 Smoking cigarettes per day: 20.0 Years smoked: 43 Smoking pack-years: 43.00 Smoking status: Current every day smoker Tobacco type: cigarettes Alcohol intake: current Drinks per week: 5 Alcohol use details: [place]- 1-2 drinks daily Substance use: never Substance use type: does not use Lack of Transportation: No Lack of Food: Never True Current Housing: I Have Housing Concerned About Future Housing: No Difficulty Paying Gas/Electric Bills: No Difficulty Paying for Meds: No Currently Unemployed: No Education: High School Diploma/GED Difficulty w/ Childcare or Family Care: No Spiritual care concerns: No Exam Narrative: GENERAL: Well-appearing, well-nourished, and in no acute distress. HEAD: Normocephalic, atraumatic. EYES: PERRLA and EOMI. ENT: Nares clear, no rhinorrhea or epistaxis. Mucous membranes moist. NECK: Supple. CHEST: Scattered crackles wheezes to auscultation. No respiratory distress. HEART: Regular rate and rhythm. No murmur heard. Normal peripheral pulses. ABDOMEN: Soft, nontender, nondistended, normal active bowel sounds. EXTREMITIES: Normal range of motion. No edema. SKIN: Warm, dry, no rash. NEURO: No focal deficits. Alert and oriented x3. PSYCH: Normal mood and affect. Course Vital Signs Vital signs: Vital Signs Temperature 36.7 C 06/11/25 11:01 Pulse Rate 100 06/11/25 11:01 Respiratory Rate 18 06/11/25 11:01 Blood Pressure 143/69 H 06/11/25 11:01 Pulse Oximetry 92 06/11/25 11:01 Oxygen Delivery Room Air 06/11/25 11:01 Temperature 36.7 C 06/11/25 11:01 Pulse Rate 86 06/11/25 12:51 Respiratory Rate 20 06/11/25 12:51 Blood Pressure 106/61 06/11/25 11:35 Pulse Oximetry 94 06/11/25 12:50 Oxygen Delivery Room Air 06/11/25 12:50 Medical Decision Making [facility] Narrative Medical decision making narrative: Differential diagnosis includes pneumonia, CHF, COPD exacerbation Patient's oxygenation is currently 92% on room air Laboratory studies showed white count [id number] chest x-ray shows interval progression Of the patient's pneumonia Patient was started on cefepime vanc as patient was previously treated with Augmentin and zithromax Vital Signs Vital Signs: Vital Signs Temperature 36.7 C 06/11/25 11:01 Pulse Rate 100 06/11/25 11:01 Respiratory Rate 18 06/11/25 11:01 Blood Pressure 143/69 H 06/11/25 11:01 Pulse Oximetry 92 06/11/25 11:01 Oxygen Delivery Room Air 06/11/25 11:01 Temperature 36.7 C 06/11/25 11:01 Pulse Rate 86 06/11/25 12:51 Respiratory Rate 20 06/11/25 12:51 Blood Pressure 106/61 06/11/25 11:35 Pulse Oximetry 94 06/11/25 12:50 Oxygen Delivery Room Air 06/11/25 12:50 Lab Data 06/11/25 12:33 06/11/25 12:34 Labs: Lab Results 06/11/25 06/11/25 06/11/25 Range/Units 12:33 12:34 12:34 WBC 17.1 H (4.5-10.0) K/mm3 RBC 3.84 L (4.6-6.20) M/mm3 Hgb 12.1 L (14.0-18.0) g/dL Hct 36.8 L (42.0-52.0) % MCV 95.8 (80-100) fl MCH 31.5 (26-34) pg MCHC 32.9 (32-36) g/dl RDW 14.2 (11.5-14.5) % Plt Count 393 H (150-375) k/mm3 MPV 8.4 (7.4-10.4) fl Immature Gran % (Auto) 0.6 H (0-0.5) % Neut % (Auto) 82.6 H (45.5-73.1) % Lymph % (Auto) 6.8 L (18.3-44.2) % [place] % (Auto) 9.8 H (2.6-8.5) % Eos % (Auto) 0.1 (0-4.4) % Baso % (Auto) 0.1 L (0.2-1.2) % Lymph # (Auto) 1.16 (0.9-3.2) K/mm3 [place] # (Auto) 1.7 H (0.1-0.6) K/mm3 Eos # (Auto) 0.0 (0-0.3) K/mm3 Baso # (Auto) 0.0 (0.0-0.1) K/mm3 Abs Immat Gran (auto) 0.10 H (0.00-0.031) K/mm3 Absolute Neuts (auto) 14.1 H (1.3-6.7) K/mm3 Absolute Nucleated RBC 0.000 (0.0-0.012) K/mm3 Nucleated RBC % 0.0 (0.0-0.2) % PT Pending INR Pending APTT Pending Sodium Pending Potassium Pending Chloride Pending Carbon Dioxide Pending Anion Gap Pending BUN Pending Creatinine Pending Estim Creat Clear Calc Pending Estimated GFR Pending Glucose Pending Lactic Acid Pending Calcium Pending Magnesium Pending Total Bilirubin Pending AST Pending ALT Pending Alkaline Phosphatase Pending Troponin I Pending C-Reactive Protein Pending Cancelled NT-Pro-B Natriuret Pep Pending Total Protein Pending Albumin Pending Procalcitonin Pending Influenza A (RT-PCR) Pending Influenza B (RT-PCR) Pending RSV (RT-PCR) Pending SARS-CoV-2 RNA (RT-PCR) Pending Discharge Plan Discharge Clinical Impression: Pneumonia, Leukocytosis COPD (chronic obstructive pulmonary disease) Qualifiers: COPD type: COPD with acute exacerbation Qualified Code(s): J44.1 - Chronic obstructive pulmonary disease with (acute) exacerbation Patient Disposition: Still a Patient Condition: Stable Patient Language: Wolof Prescriptions: No Action meclizine 25 mg tablet 25 mg PO BID PRN (Reason: dizziness) Qty: 180 1RF tamsulosin 0.4 mg capsule 0.4 mg PO QHS Qty: 90 3RF amlodipine 10 mg tablet 10 mg PO DAILY Qty: 90 3RF albuterol sulfate 90 mcg/actuation HFA aerosol inhaler 1 - 2 inh inhalation Q4-6H PRN (Reason: shortness of breath or wheezing) Qty: 8.5 11RF azithromycin 500 mg tablet 500 mg PO DAILY 3 Days Qty: 3 0RF amoxicillin-pot clavulanate 875-125 mg tablet 1 tablet PO Q12H Qty: 10 0RF prednisone 20 mg tablet 40 mg PO DAILY Qty: 10 0RF Follow-up/Referrals: Anna Scherer NP [Primary Care Provider, [facility]] Time of Disposition: 13:05
[2025-06-11 12:55] LABS: Alanine Aminotransferase 58 U/L (6-50); Albumin Level 3.2 g/dL (3.5-5.1); Alkaline Phosphatase 104 U/L (38-126); Anion Gap 6 mmol/L (4-12); Aspartate Amino Transferase 57 U/L (17-59); Bilirubin,Total 1.1 mg/dL (0.2-1.3); Blood Urea Nitrogen 13 mg/dL (9-20); Calcium 8.8 mg/dL (8.4-10.2); Carbon Dioxide 25 mmol/L (22-30); Chloride 101 mmol/L (98-107); Estimated CRCL calculation 75 ml/min; Estimated Glomerular Filt Rate > 60; Glucose 110 mg/dL (65-110); Magnesium 2.3 mg/dL (1.6-2.3); Potassium 4.2 mmol/L (3.4-5.0); Sodium 132 mmol/L (137-145); Total Protein 6.7 g/dL (6.3-8.2)
[2025-06-11 13:04] LABS: INR 1.1; NT Pro B Type Natriuretic Pept 58 pg/mL (19.9-100); Prothrombin Time 14.4 Seconds (11.1-14.7); Troponin I < 0.012 ng/mL (0.000-0.034)
[2025-06-11 13:05] LABS: Partial Thromboplastin Time 35.5 Seconds (22.3-36.8)
[2025-06-11 13:16] LABS: Influenza A QL RT-PCR Negative (Negative); Influenza B QL RT-PCR Negative (Negative); RSV RNA, RT-PCR Negative (Negative); SARS-CoV-2 RNA PCR Negative (Negative)
[2025-06-11 13:22] LABS: Procalcitonin 0.4 ng/mL
[2025-06-11] MEDS: CEFEPIME 2 GM in SODIUM CHLORIDE 0.9% IV 50 ML 100 ML IVPB ×2 (13:23→21:38)
--- NOTE | 2025-06-11 13:55 | PC.NURSE ---
This patient, Garry Moulton, was admitted to [facility] Surg Room 305-01 at 1355. Patient/family oriented to hospital policies and general routines including ID bracelet, bed and alarms, visiting hours, pain management, procedures, bathroom and other care routines, personal items, smoking policy, room service/diet, and visiting hours. Information on how to activate the Rapid Response Team has been discussed. Patient/Family are encouraged to report perceived risks to care and to ask questions if they do not understand what they are told or what they should do.
[2025-06-11 14:20] LABS: MRSA (PCR) NOT DETECTED (NOT DETECTE)
[2025-06-11] MEDS: VANCOMYCIN 1,750 MG/NS 500 ML 1,750 MG/500 ML BAG 250 MG IVPB (15:20)
[2025-06-11 15:47] LABS: CRP 30.9 mg/dL (<1.0)
--- NOTE | 2025-06-11 17:01 | P.HP_ITS ---
H&P: HPI History of Present Illness Date/Time: 06/11/25 17:01 Chief Complaint: Shortness of breath Narrative: 75-year-old male past medical history of hypertension, COPD presents the hospital with shortness of breath. He states that two weeks ago he had pneumonia was sent oral antibiotics. He states that he finishes oral antibiotics. He states that being at home he did not improve and in fact he complains of his cough is much worse now. Patient denies fevers chills nausea or vomiting. His no other complaints at this time. Lab work in the ED shows leukocytosis at 17.1, hemoglobin of 12.1, sodium of 132, ALT of 58, CRP 30.9, MRSA negative, influenza A/B, RSV and COVID negative. Chest x-ray shows Significant interval progression of patchy bilateral pneumonia. Patient started on cefepime and vancomycin due to previously failing IV antibiotic therapy. Review of Systems Review of Systems: 12 systems were reviewed and are negativ e except for as per HPI. PMFSH Past Medical History Medical History Nicotine abuse Pneumonia SOB (shortness of breath) on exertion Prediabetes Elevated PSA Lung cancer screening declined by patient Nocardia infection Emphysema of lung Abnormal CT lung screening Colon cancer screening declined Screening for lung cancer Protein in urine Elevated fasting glucose Adult BMI 25.0-25.9 kg/sq m Nocturia Encounter to establish care Dizziness Shortness of breath Tobacco abuse Hypertension Surgical History Surgical History H/O hernia repair 2009 Family History Family History Father Cancer Hypertension Cerebrovascular accident Mother Hypertension Social History Social History Smoking packs per day: 1.5 Smoking cigarettes per day: 30.0 Years smoked: 43 Smoking pack-years: 64.50 Smoking status: Current every day smoker Tobacco type: cigarettes Alcohol intake: current Drinks per week: 5 Alcohol use details: [place]- 1-2 drinks daily Substance use: never Substance use type: does not use Lack of Transportation: No Lack of Food: Never True Current Housing: I Have Housing Concerned About Future Housing: No Difficulty Paying Gas/Electric Bills: No Difficulty Paying for Meds: No Currently Unemployed: No Education: High School Diploma/GED Difficulty w/ Childcare or Family Care: No Spiritual care concerns: No Meds Home Medications and Allergies Home Medications ?Medication ?Instructions ?Recorded ?Confirmed ?Type meclizine 25 mg tablet 25 mg PO BID PRN dizziness # 180 08/31/21 06/11/25 Rx tabs albuterol sulfate 90 mcg/actuation 1 - 2 inh inhalatio n Q4-6H PRN 05/05/24 06/11/25 Rx aerosol inhaler shortness of breath or wheez ing #8.5 grams amlodipine 10 mg tablet 10 mg PO DAILY #90 tabs 04/1906/11/25 Rx Held on 05/31/25. Instructions: Resume on 06/20/25. Hold until PCP follow up. tamsulosin 0.4 mg capsule 0.4 mg PO QHS #90 caps 05/0606/11/25 Rx prednisone 20 mg tablet 40 mg (2 x 20 mg) PO DAILY # 10 tabs 05/31/25 06/11/25 Rx Allergies Allergy/AdvReac Type Severity Reaction Status Date / Time No Known Allergies Allergy Verified 06/11/25 11:01 Vital Signs Vital Signs - 24 hr 06/11/25 11:01 06/11/25 11:35 06/11/25 11:36 Temperature 98.1 F Pulse Rate 100 91 Respiratory Rate 18 18 Blood Pressure 143/69 H 106/61 Pulse Oximetry 92 92 92 Oxygen Delivery Room Air Room Air 06/11/25 12:40 06/11/25 12:42 06/11/25 12:50 Temperature Pulse Rate 91 88 Respiratory Rate 18 22 H Blood Pressure 102/70 Pulse Oximetry 91 94 Oxygen Delivery Room Air 06/11/25 12:51 06/11/25 13:38 06/11/25 14:00 Temperature 97.8 F 97.7 F Pulse Rate 86 97 98 Respiratory Rate 20 18 22 H Blood Pressure 110/63 128/61 Pulse Oximetry 91 90 Oxygen Delivery 06/11/25 15:44 Temperature Pulse Rate Respiratory Rate Blood Pressure Pulse Oximetry Oxygen Delivery Room Air Exam Narrative: General: well appearing, appears stated age. HEENT: normocephalic, atraumatic. Mucous membranes moist. EOMI, PERRLA, bilateral sclera anicteric, no conjunctival injection. Neck supple without JVD, lymphadenopathy, or bruit. Respiratory: Expiatory wheeze Cardiovascular: Regular rate and rhythm, normal S1-S2 upon ascultation. No murmurs, rubs, or clicks. PMI is nondisplaced, capillary refill less than 3 second. Abdomen: Soft, round, no pulsatile masses, nondistended and nontender. No rebound, no guarding. No CVA tenderness, no hepatosplenomegaly. Bowel sounds present to all four quadrants. No high pitch or tinkling sounds, resonant to percussion. Extremities: No cyanosis, clubbing, or edema present. Pulses are palpable 2/2. Active ROM to all four extremities. Neuro: Alert and orientated x 4. PERRLA. Cranial nerves 2-12 intact without focal deficit. Skin: Warm, dry, and intact, without rash, erythema, or lesion. Psych: pleasant, cooperative, normal speech, normal affect, no hallucinations, no dysarthia H&P: Results Labs Labs: Short CBC 06/11/25 Range/Units 12:33 WBC 17.1 H (4.5-10.0) K/mm3 Hgb 12.1 L (14.0-18.0) g/dL Hct 36.8 L (42.0-52.0) % Plt Count 393 H (150-375) k/mm3 BMP 06/11/25 12:34 Sodium 132 L Potassium 4.2 Chloride 101 Carbon Dioxide 25 BUN 13 D Creatinine 0.71 Glucose 110 Calcium 8.8 Cardiac Enzymes 06/11/25 Range/Units 12:34 Troponin I < 0.012 (0.000-0.034) ng/mL Liver Function 06/11/25 Range/Units 12:34 Total Bilirubin 1.1 (0.2-1.3) mg/dL AST 57 (17-59) U/L ALT 58 H (6-50) U/L Alkaline Phosphatase 104 (38-126) U/L Albumin 3.2 L (3.5-5.1) g/dL Assessment and Plan Assessment and plan (1) COPD (chronic obstructive pulmonary disease): Qualifiers: COPD type: COPD with acute exacerbation Qualified Code(s): J44.1 - Chronic obstructive pulmonary disease with (acute) exacerbation Code(s): J44.9 - Chronic obstructive pulmonary disease, unspecified Status: Acute Assessment and Plan: Acute exacerbation, failed previous treatment Cefepime and vancomycin DuoNebs Solu-Medrol Blood cultures pending (2) Pneumonia: Code(s): J18.9 - Pneumonia, unspecified organism Status: Acute Assessment and Plan: See above (3) Hypertension: Code(s): I10 - Essential (primary) hypertension Status: Chronic Assessment and Plan: patient was previously discharged from hospital he was told hold his home amlodipine Will continue to hold amlodipine as his blood pressure is within normal range (4) BPH (benign prostatic hyperplasia): Code(s): N40.0 - Benign prostatic hyperplasia without lower urinary tract symptoms Status: Acute Assessment and Plan: Continue Flomax (5) Elevated liver enzymes: Code(s): R74.8 - Abnormal levels of other serum enzymes Status: Acute Assessment and Plan: CMP in a.m. Quality VTE Prophylaxis VTE prophylaxis: mechanical ordered and pharmacologic ordered Hospitalist [facility] Advance Care Plan I have confirmed that the patient's Advanced Care Plan is present, code status is documented, or surrogate decision maker is listed in patient medical record.: Yes Medication Reconciliation I have utilized all available resources to obtain, update and review the patients current medications (includes all prescriptions, OTC, herbals, cannabis, and nutritional supplements).: Yes
[2025-06-11] MEDS: guaiFENesin 12 HR 600 MG TABCR 1200 MG PO (21:38)
[2025-06-11] MEDS: TAMSULOSIN HCL 0.4 MG CAPSULE PO (21:38)
[2025-06-11 21:40] LABS: Add Urine Microscopic? YES; Appearance Urine Cloudy (Clear); Glucose Urine UA 3+ mg/dL (Negative); Leukocyte Esterase Ur Negative LEU/UL (Negative); Need Manual Microscopic Reviewed; Nitrate Urine Negative (Negative); Specific Grav Ur 1.021 (1.001-1.035)
[2025-06-12] VITALS (12 sets, daily range): BP systolic 99–115; BP diastolic 50–63; PULSE 67–93; RESP 14–20; TEMP 36.4–36.6; O2SAT 93–99
[2025-06-12] MEDS: IPRATROPIUM 0.5 MG/ALBUTEROL SULFATE 2.5 MG AMPUL.NEB 3 ML INHALATION ×4 (01:34→19:43)
[2025-06-12 05:32] LABS: Hematocrit 34.7 % (42.0-52.0); Hemoglobin 11.7 g/dL (14.0-18.0); Immature Granulocyte Percent A 1.0 % (0-0.5); Lymphocytes Absolute Auto 0.31 K/mm3 (0.9-3.2); Mean Corpuscular HGB Conc 33.7 g/dl (32-36); Mean Corpuscular Hemoglobin 32.2 pg (26-34); Mean Corpuscular Volume 95.6 fl (80-100); Nucleated Red Blood Cells Absolute Auto 0.000 K/mm3 (0.0-0.012); Nucleated Red Blood Cells Perc 0.0 % (0.0-0.2); Platelet Count Result 359 k/mm3 (150-375); Red Blood Count 3.63 M/mm3 (4.6-6.20); White Blood Count 9.9 K/mm3 (4.5-10.0)
[2025-06-12 05:56] LABS: Alanine Aminotransferase 67 U/L (6-50); Albumin Level 2.9 g/dL (3.5-5.1); Alkaline Phosphatase 106 U/L (38-126); Anion Gap 6 mmol/L (4-12); Aspartate Amino Transferase 61 U/L (17-59); Bilirubin,Total 0.4 mg/dL (0.2-1.3); Blood Urea Nitrogen 18 mg/dL (9-20); Calcium 8.7 mg/dL (8.4-10.2); Carbon Dioxide 25 mmol/L (22-30); Chloride 102 mmol/L (98-107); Estimated CRCL calculation 88 ml/min; Estimated Glomerular Filt Rate > 60; Glucose 192 mg/dL (65-110); Potassium 4.0 mmol/L (3.4-5.0); Sodium 133 mmol/L (137-145); Total Protein 6.3 g/dL (6.3-8.2)
[2025-06-12] MEDS: guaiFENesin 12 HR 600 MG TABCR 1200 MG PO ×2 (08:45→20:41)
[2025-06-12] MEDS: VANCOMYCIN 1,250 MG/NS 250 ML 1,250 MG/250 ML BAG 166.67 MG IVPB (08:45)
[2025-06-12] MEDS: CEFEPIME 2 GM in SODIUM CHLORIDE 0.9% IV 50 ML 100 ML IVPB ×2 (08:45→20:42)
--- NOTE | 2025-06-12 10:09 | P.PNIM_ITS ---
Progress Note: A&P Assessment and Plan (1) COPD (chronic obstructive pulmonary disease): Qualifiers: COPD type: COPD with acute exacerbation Qualified Code(s): J44.1 - Chronic obstructive pulmonary disease with (acute) exacerbation Code(s): J44.9 - Chronic obstructive pulmonary disease, unspecified Status: Acute Assessment and Plan: Acute exacerbation, failed previous treatment Cefepime and vancomycin DuoNebs Solu-Medrol Blood cultures pending WBC improved -9.9 today (down from 17) daily labs -no wheezing on exam, will decrease frequency for methylprednisone to q12h IV (2) Pneumonia: Code(s): J18.9 - Pneumonia, unspecified organism Status: Acute Assessment and Plan: See above (3) Hypertension: Code(s): I10 - Essential (primary) hypertension Status: Chronic Assessment and Plan: patient was previously discharged from hospital he was told hold his home amlodipine Will continue to hold amlodipine as his blood pressure is within normal range (4) BPH (benign prostatic hyperplasia): Code(s): N40.0 - Benign prostatic hyperplasia without lower urinary tract symptoms Status: Acute Assessment and Plan: Continue Flomax (5) Elevated liver enzymes: Code(s): R74.8 - Abnormal levels of other serum enzymes Status: Acute Assessment and Plan: CMP in a.m. Time Spent With Patient Time with patient: 25 - 35 minutes Subjective Date/time seen: 06/12/25 10:09 Interval history: 75-year-old male past medical history of hypertension, COPD presents the hospital with shortness of breath. He states that two weeks ago he had pneumonia was sent oral antibiotics. He states that he finishes oral antibiotics. He states that being at home he did not improve and in fact he complains of his cough is much worse now. Patient denies fevers chills nausea or vomiting. His no other complaints at this time. Lab work in the ED shows leukocytosis at 17.1, hemoglobin of 12.1, sodium of 132, ALT of 58, CRP 30.9, MRSA negative, influenza A/B, RSV and COVID negative. Chest x-ray shows Significant interval progression of patchy bilateral pneumonia. Patient started on cefepime and vancomycin due to previously failing IV antibiotic therapy. Pt is seen and examined. He is comfortable, no pain. Able to move around well, refuses lovenox. states had the same scenario years ago when he had episodes of pneumonia back to back and required multiple rounds of antibiotics. Review of Systems Review of Systems: 12 systems were reviewed and are negativ e except for as per HPI. Exam Narrative: General: well appearing, appears stated age. HEENT: normocephalic, atraumatic. Mucous membranes moist. EOMI, PERRLA, bilateral sclera anicteric, no conjunctival injection. Neck supple without JVD, lymphadenopathy, or bruit. Respiratory: Expiatory wheeze Cardiovascular: Regular rate and rhythm, normal S1-S2 upon ascultation. No murmurs, rubs, or clicks. PMI is nondisplaced, capillary refill less than 3 second. Abdomen: Soft, round, no pulsatile masses, nondistended and nontender. No rebound, no guarding. No CVA tenderness, no hepatosplenomegaly. Bowel sounds present to all four quadrants. No high pitch or tinkling sounds, resonant to percussion. Extremities: No cyanosis, clubbing, or edema present. Pulses are palpable 2/2. Active ROM to all four extremities. Neuro: Alert and orientated x 4. PERRLA. Cranial nerves 2-12 intact without focal deficit. Skin: Warm, dry, and intact, without rash, erythema, or lesion. Psych: pleasant, cooperative, normal speech, normal affect, no hallucinations, no dysarthia Objective Data Vital Signs Vital Signs: Vital Signs - 24 hr 06/11/25 11:01 06/11/25 11:35 06/11/25 11:36 Temperature 98.1 F Pulse Rate 100 91 Respiratory Rate 18 18 Blood Pressure 143/69 H 106/61 Pulse Oximetry 92 92 92 Oxygen Delivery Room Air Room Air Fraction of Inspired Oxygen 06/11/25 12:40 06/11/25 12:42 06/11/25 12:50 Temperature Pulse Rate 91 88 Respiratory Rate 18 22 H Blood Pressure 102/70 Pulse Oximetry 91 94 Oxygen Delivery Room Air Fraction of Inspired Oxygen 06/11/25 12:51 06/11/25 13:38 06/11/25 14:00 Temperature 97.8 F 97.7 F Pulse Rate 86 97 98 Respiratory Rate 20 18 22 H Blood Pressure 110/63 128/61 Pulse Oximetry 91 90 Oxygen Delivery Fraction of Inspired Oxygen 06/11/25 15:44 06/11/25 21:07 06/11/25 21:08 Temperature Pulse Rate 85 80 Respiratory Rate 20 20 Blood Pressure Pulse Oximetry 95 Oxygen Delivery Room Air Room Air Fraction of Inspired Oxygen 21 06/11/25 21:38 06/11/25 22:00 06/12/25 01:35 Temperature 97.2 F L Pulse Rate 63 73 Respiratory Rate 18 20 Blood Pressure 106/59 L Pulse Oximetry 97 97 Oxygen Delivery Room Air Fraction of Inspired Oxygen 06/12/25 01:45 06/12/25 06:00 06/12/25 08:04 Temperature 97.6 F Pulse Rate 78 67 78 Respiratory Rate 20 17 20 Blood Pressure 102/62 Pulse Oximetry 99 Oxygen Delivery Fraction of Inspired Oxygen Intake/Output Intake/Output: Intake & Output 06/09/25 06/10/25 06/11/25 06/12/25 23:59 23:59 23:59 23:59 Intake Total 390 400 Balance 390 400 Meds/Results Medications: Active Medications Generic Name Dose Route Start Last Admin Trade Name Freq PRN Reason Stop Dose Admin Acetaminophen 650 mg 06/11/25 16:59 Acetaminophen 325 Mg Tablet PO Q4H PRN Mild Pain (1-3) or Fever Albuterol/Ipratropium 3 ml 06/11/25 14:00 06/12/25 08:03 Ipratropium 0.5 Mg/Albuterol Sulfate 2.5 Mg Ampul.Neb 3 Ml INHALATION 3 ml Q6HRT LAURA Administration Docusate Sodium 100 mg 06/11/25 17:00 06/12/25 08:54 Docusate Sodium 100 Mg Capsule PO Not Given BID LAURA Enoxaparin Sodium 40 mg 06/12/25 09:00 06/12/25 08:54 Enoxaparin 40 Mg/0.4 Ml Syringe SUB-Q Not Given DAILY LAURA Guaifenesin 1,200 mg 06/11/25 21:00 06/12/25 08:45 Guaifenesin 12 Hr 600 Mg Tabcr PO 1,200 mg Q12HR LAURA Administration Cefepime HCl 2 gm/ Sodium 50 mls @ 100 mls/hr 06/11/25 21:00 06/12/25 08:45 Chloride IVPB 100 mls/hr Q12HR LAURA Administration Vancomycin HCl 1,250 mg in 250 mls @ 166.667 mls/hr 06/12/25 08:00 06/12/25 08:45 Vancomycin 1,250 Mg/Ns 250 Ml IVPB 166.67 mls/hr Q18H LAURA Administration Meclizine HCl 25 mg 06/11/25 19:20 Meclizine Hcl 25 Mg Tablet PO BID PRN Dizziness Methylprednisolone Sodium Succinate 60 mg 06/11/25 22:00 06/12/25 05:22 Methylprednisolone Sod Succ 125 Mg Vial IV PUSH 60 mg Q8HR LAURA Administration Ondansetron HCl 4 mg 06/11/25 12:55 Ondansetron Inj 4 Mg/2 Ml Vial IV PUSH Q4H PRN Nausea Prednisone 40 mg 06/12/25 09:00 Prednisone 20 Mg Tablet PO On Hold: 06/12/25 09:00 DAILY LAURA Tamsulosin HCl 0.4 mg 06/11/25 21:00 06/11/25 21:38 Tamsulosin Hcl 0.4 Mg Capsule PO 0.4 mg QHS LAURA Administration Radiology Results: ITS Impressions Chest X-Ray 06/11/25 12:07 Impression: 1: Significant interval progression of patchy bilateral pneumonia. Labs Labs: Laboratory Results - last 24 hr 06/11/25 06/11/25 06/11/25 12:33 12:34 12:34 WBC 17.1 H RBC 3.84 L Hgb 12.1 L Hct 36.8 L MCV 95.8 MCH 31.5 MCHC 32.9 RDW 14.2 Plt Count 393 H MPV 8.4 Immature Gran % (Auto) 0.6 H Neut % (Auto) 82.6 H Lymph % (Auto) 6.8 L [place] % (Auto) 9.8 H Eos % (Auto) 0.1 Baso % (Auto) 0.1 L Lymph # (Auto) 1.16 [place] # (Auto) 1.7 H Eos # (Auto) 0.0 Baso # (Auto) 0.0 Abs Immat Gran (auto) 0.10 H Absolute Neuts (auto) 14.1 H Absolute Nucleated RBC 0.000 Nucleated RBC % 0.0 PT 14.4 INR 1.1 APTT 35.5 Sodium 132 L Potassium 4.2 Chloride 101 Carbon Dioxide 25 Anion Gap 6 BUN 13 D Creatinine 0.71 Estim Creat Clear Calc 75 Estimated GFR > 60 Glucose 110 Lactic Acid 1.0 Calcium 8.8 Magnesium 2.3 Total Bilirubin 1.1 AST 57 ALT 58 H Alkaline Phosphatase 104 Troponin I < 0.012 C-Reactive Protein 30.9 H Cancelled NT-Pro-B Natriuret Pep 58 Total Protein 6.7 Albumin 3.2 L Procalcitonin 0.4 Urine Color Urine Appearance Urine pH Ur Specific [place] Urine Protein Urine Glucose (UA) Urine Ketones Ur Blood (Man) Urine Nitrate Urine Bilirubin Urine Urobilinogen Add Ur Microanalysis Leukocyte Esterase Rfl Urine RBC Urine WBC Ur Squamous Epith Cells Urine Bacteria Urine Casts Nasal MRSA (PCR) Influenza A (RT-PCR) Negative Influenza B (RT-PCR) Negative RSV (RT-PCR) Negative SARS-CoV-2 RNA (RT-PCR) Negative 06/11/25 06/11/25 06/12/25 13:04 21:06 05:03 WBC 9.9 RBC 3.63 L Hgb 11.7 L Hct 34.7 L MCV 95.6 MCH 32.2 MCHC 33.7 RDW 14.1 Plt Count 359 MPV 8.7 Immature Gran % (Auto) 1.0 H Neut % (Auto) 94.5 H Lymph % (Auto) 3.1 L [place] % (Auto) 1.3 L Eos % (Auto) 0.0 Baso % (Auto) 0.1 L Lymph # (Auto) 0.31 L [place] # (Auto) 0.1 Eos # (Auto) 0.0 Baso # (Auto) 0.0 Abs Immat Gran (auto) 0.10 H Absolute Neuts (auto) 9.3 H Absolute Nucleated RBC 0.000 Nucleated RBC % 0.0 PT INR APTT Sodium 133 L Potassium 4.0 Chloride 102 Carbon Dioxide 25 Anion Gap 6 BUN 18 Creatinine 0.62 L Estim Creat Clear Calc 88 Estimated GFR > 60 Glucose 192 H Lactic Acid Calcium 8.7 Magnesium Total Bilirubin 0.4 AST 61 H ALT 67 H Alkaline Phosphatase 106 Troponin I C-Reactive Protein NT-Pro-B Natriuret Pep Total Protein 6.3 Albumin 2.9 L Procalcitonin Urine Color Yellow Urine Appearance Cloudy H Urine pH 5.5 Ur Specific [place] 1.021 Urine Protein 1+ H Urine Glucose (UA) 3+ H Urine Ketones Trace H Ur Blood (Man) Negative Urine Nitrate Negative Urine Bilirubin Negative Urine Urobilinogen 0.2 Add Ur Microanalysis Reviewed Leukocyte Esterase Rfl Negative Urine RBC 0-2 Urine WBC 0-5 Ur Squamous Epith Cells None seen Urine Bacteria None seen Urine Casts 3-5 Nasal MRSA (PCR) Not detected Influenza A (RT-PCR) Influenza B (RT-PCR) RSV (RT-PCR) SARS-CoV-2 RNA (RT-PCR) Quality VTE Prophylaxis VTE prophylaxis: mechanical ordered and pharmacologic ordered
[2025-06-12] MEDS: TAMSULOSIN HCL 0.4 MG CAPSULE PO (20:41)
[2025-06-13] VITALS (12 sets, daily range): BP systolic 119–146; BP diastolic 51–73; PULSE 60–93; RESP 16–20; TEMP 35.9–36.1; O2SAT 94–98
[2025-06-13] MEDS: IPRATROPIUM 0.5 MG/ALBUTEROL SULFATE 2.5 MG AMPUL.NEB 3 ML INHALATION ×4 (01:36→19:46)
[2025-06-13] MEDS: VANCOMYCIN 1,500 MG/NS 500 ML 1,500 MG/500 ML BAG 250 MG IVPB (02:20)
[2025-06-13 05:52] LABS: Hematocrit 34.0 % (42.0-52.0); Hemoglobin 11.0 g/dL (14.0-18.0); Mean Corpuscular HGB Conc 32.4 g/dl (32-36); Mean Corpuscular Hemoglobin 31.3 pg (26-34); Mean Corpuscular Volume 96.9 fl (80-100); Platelet Count Result 404 k/mm3 (150-375); Red Blood Count 3.51 M/mm3 (4.6-6.20); White Blood Count 19.6 K/mm3 (4.5-10.0)
[2025-06-13 06:24] LABS: Anion Gap 6 mmol/L (4-12); Blood Urea Nitrogen 26 mg/dL (9-20); Calcium 8.7 mg/dL (8.4-10.2); Carbon Dioxide 24 mmol/L (22-30); Chloride 105 mmol/L (98-107); Estimated CRCL calculation 70 ml/min; Estimated Glomerular Filt Rate > 60; Glucose 157 mg/dL (65-110); Potassium 3.8 mmol/L (3.4-5.0); Sodium 135 mmol/L (137-145)
[2025-06-13] MEDS: CEFEPIME 2 GM in SODIUM CHLORIDE 0.9% IV 50 ML 100 ML IVPB ×2 (08:31→20:55)
[2025-06-13] MEDS: AZITHROMYCIN 250 MG TABLET 500 MG PO (08:32)
[2025-06-13] MEDS: guaiFENesin 12 HR 600 MG TABCR 1200 MG PO ×2 (08:32→20:54)
--- NOTE | 2025-06-13 09:00 | P.PNIM_ITS ---
Progress Note: A&P Assessment and Plan (1) Pneumonia: Code(s): J18.9 - Pneumonia, unspecified organism Status: Acute Assessment and Plan: CXR: Significant interval progression of patchy bilateral pneumonia. - Complicating Factors: COPD exacerbation and recent hospitalization from 05/29- 05/31 - started on cefepime and vancomycin on 06/11, MRSA negative Vanc DC. Started on azithromycin for atypical coverage. - Viral PCR: negative for Flu/COVID/RSV - Sputum culture ordered - Ordered legionella, mycoplasma and pneumococcal - no supplemental O2 requirement - Monitor vital signs, I&Os, neuro status and patient is a fall risk - Follow WBC, serum electrolytes, temperature curves and cultures Patient states that SOB has resolved and cough has significantly improved since admission. WBC elevated likely due to infection and cocurrent steroid use for COPD exacerbation. Will continue to trend. Given recent hospitalization and continued progression of pneumonia despite prior antibiotic he remains on HAP treatment (2) COPD (chronic obstructive pulmonary disease): Qualifiers: COPD type: COPD with acute exacerbation Qualified Code(s): J44.1 - Chronic obstructive pulmonary disease with (acute) exacerbation Code(s): J44.9 - Chronic obstructive pulmonary disease, unspecified Status: Acute Assessment and Plan: CXR: Significant interval progression of patchy bilateral pneumonia. Send sputum cultures if possible Duonebz q6H and Albuterol q2H prn Solu-Medrol 60 mg IVq12H Monitor vital signs, I&Os, neuro status and patient is a fall risk Monitor serum electrolytes, cultures and CBC Monitor Oxygen saturation, keep SpO2 greater than 88% No wheezing on exam. (3) Elevated liver enzymes: Code(s): R74.8 - Abnormal levels of other serum enzymes Status: Acute Assessment and Plan: LFTs slightly elevated on 06/12 with AST 61 and ALT 67. Tot bili and alk phos WNL. CMP in a.m. (4) Hypertension: Code(s): I10 - Essential (primary) hypertension Status: Chronic Assessment and Plan: Patient was previously discharged from hospital on 05/31 and was told to hold his home amlodipine 10 mg daily Will continue to hold amlodipine as his blood pressure is within normal range and intermittently borderline hypotensive with sytolic low 100s Continue to monitor (5) BPH (benign prostatic hyperplasia): Code(s): N40.0 - Benign prostatic hyperplasia without lower urinary tract symptoms Status: Acute Assessment and Plan: Continue Flomax Time Spent With Patient Time with patient: 25 - 35 minutes Subjective Date/time seen: 06/13/25 09:00 Interval history: 75-year-old male patient with history of COPD, hypertension and BPH presents to the hospital for shortness of breath. Patient is pleasant sitting up comfortably in bed. He states that he is feeling great since admission. The shortness of breath has resolved and the cough has improved. He has no other complaints denying chest pain, palpitations, nausea/vomiting and abdominal pain. Review of Systems Review of Systems: All systems reviewed & are unremarkable except as noted in HPI and below Exam Narrative: AF HR 90 RR 16 Spo2 94 BP 146/73 General: male in no acute respiratory distress who is nontoxic appearing, sitting up in bed. HEENT: Normocephalic. Atraumatic. Extraocular movement intact. Sclera clear and anicteric. No facial asymmetry. Chest: Lungs are diminshed throughout with coarse rhonchi to the bases on auscultation bilaterally. No wheezes. CV: Heart was regular rate and rhythm. Abd: Abdomen was soft. Nontender. Nondistended. Positive bowel sounds. Ext: No clubbing, cyanosis, or edema. DP pulses bilaterally. Neuro: Patient is alert and oriented x4. Speech is clear, speaking full sentences. Objective Data Vital Signs Vital Signs: Vital Signs - 24 hr 06/12/25 13:52 06/12/25 14:00 06/12/25 14:04 Temperature 97.8 F Pulse Rate 82 83 80 Respiratory Rate 20 14 18 Blood Pressure 99/50 L Pulse Oximetry 93 Oxygen Delivery Fraction of Inspired Oxygen 06/12/25 16:55 06/12/25 19:45 06/12/25 19:46 Temperature Pulse Rate 75 93 93 Respiratory Rate 18 16 16 Blood Pressure 115/60 Pulse Oximetry 98 93 Oxygen Delivery Room Air Fraction of Inspired Oxygen 21 06/12/25 19:55 06/12/25 21:48 06/13/25 01:36 Temperature 98 F Pulse Rate 93 79 93 Respiratory Rate 16 18 16 Blood Pressure 115/63 Pulse Oximetry 94 Oxygen Delivery Fraction of Inspired Oxygen 06/13/25 01:49 06/13/25 06:00 06/13/25 08:37 Temperature 96.9 F L Pulse Rate 93 86 88 Respiratory Rate 16 18 16 Blood Pressure 146/73 H Pulse Oximetry 98 Oxygen Delivery Fraction of Inspired Oxygen 06/13/25 08:39 06/13/25 08:44 Temperature Pulse Rate 88 90 Respiratory Rate 16 16 Blood Pressure Pulse Oximetry 94 Oxygen Delivery Room Air Fraction of Inspired Oxygen 21 Intake/Output Intake/Output: Intake & Output 06/10/25 06/11/25 06/12/25 06/13/25 23:59 23:59 23:59 23:59 Intake Total 390 1110 550 Balance 390 1110 550 Meds/Results Medications: Active Medications Generic Name Dose Route Start Last Admin Trade Name Freq PRN Reason Stop Dose Admin Acetaminophen 650 mg 06/11/25 16:59 Acetaminophen 325 Mg Tablet PO Q4H PRN Mild Pain (1-3) or Fever Albuterol/Ipratropium 3 ml 06/11/25 14:00 06/13/25 08:37 Ipratropium 0.5 Mg/Albuterol Sulfate 2.5 Mg Ampul.Neb 3 Ml INHALATION 3 ml Q6HRT LAURA Administration Azithromycin 500 mg 06/13/25 09:00 06/13/25 08:32 Azithromycin 250 Mg Tablet PO 06/17/25 09:01 500 mg DAILY LAURA Administration Docusate Sodium 100 mg 06/11/25 17:00 06/13/25 08:33 Docusate Sodium 100 Mg Capsule PO Not Given BID LAURA Enoxaparin Sodium 40 mg 06/12/25 09:00 06/13/25 08:32 Enoxaparin 40 Mg/0.4 Ml Syringe SUB-Q Not Given DAILY [facility] Guaifenesin 1,200 mg 06/11/25 21:00 06/13/25 08:32 Guaifenesin 12 Hr 600 Mg Tabcr PO 1,200 mg Q12HR LAURA Administration Cefepime HCl 2 gm/ Sodium 50 mls @ 100 mls/hr 06/11/25 21:00 06/13/25 08:31 Chloride IVPB 100 mls/hr Q12HR LAURA Administration Meclizine HCl 25 mg 06/11/25 19:20 Meclizine Hcl 25 Mg Tablet PO BID PRN Dizziness Methylprednisolone Sodium Succinate 60 mg 06/12/25 18:00 06/13/25 06:21 Methylprednisolone Sod Succ 125 Mg Vial IV PUSH 60 mg Q12H LAURA Administration Ondansetron HCl 4 mg 06/11/25 12:55 Ondansetron Inj 4 Mg/2 Ml Vial IV PUSH Q4H PRN Nausea Tamsulosin HCl 0.4 mg 06/11/25 21:00 06/12/25 20:41 Tamsulosin Hcl 0.4 Mg Capsule PO 0.4 mg QHS LAURA Administration Radiology Results: ITS Impressions Chest X-Ray 06/11/25 12:07 Impression: 1: Significant interval progression of patchy bilateral pneumonia. Labs Labs: Laboratory Results - last 24 hr 06/13/25 06/13/25 01:02 05:09 WBC 19.6 H RBC 3.51 L Hgb 11.0 L Hct 34.0 L MCV 96.9 MCH 31.3 MCHC 32.4 RDW 14.6 H Plt Count 404 H MPV 8.9 Sodium 135 L Potassium 3.8 Chloride 105 Carbon Dioxide 24 Anion Gap 6 BUN 26 H Creatinine 0.79 Estim Creat Clear Calc 70 Estimated GFR > 60 Glucose 157 H Calcium 8.7 Vancomycin Trough 7.4 L Quality VTE Prophylaxis VTE prophylaxis: mechanical ordered and pharmacologic ordered
[2025-06-13] MEDS: TAMSULOSIN HCL 0.4 MG CAPSULE PO (20:54)
[2025-06-14] VITALS (13 sets, daily range): BP systolic 101–138; BP diastolic 52–72; PULSE 55–91; RESP 16–20; TEMP 35.9–36.3; O2SAT 97–98
[2025-06-14] MEDS: IPRATROPIUM 0.5 MG/ALBUTEROL SULFATE 2.5 MG AMPUL.NEB 3 ML INHALATION ×4 (01:22→20:14)
[2025-06-14 06:19] LABS: Hematocrit 34.1 % (42.0-52.0); Hemoglobin 10.9 g/dL (14.0-18.0); Mean Corpuscular HGB Conc 32.0 g/dl (32-36); Mean Corpuscular Hemoglobin 31.3 pg (26-34); Mean Corpuscular Volume 98.0 fl (80-100); Platelet Count Result 406 k/mm3 (150-375); Red Blood Count 3.48 M/mm3 (4.6-6.20); White Blood Count 15.9 K/mm3 (4.5-10.0)
[2025-06-14 06:49] LABS: Alanine Aminotransferase 168 U/L (6-50); Albumin Level 2.9 g/dL (3.5-5.1); Alkaline Phosphatase 80 U/L (38-126); Anion Gap 4 mmol/L (4-12); Aspartate Amino Transferase 62 U/L (17-59); Bilirubin,Total 0.3 mg/dL (0.2-1.3); Blood Urea Nitrogen 28 mg/dL (9-20); Calcium 8.8 mg/dL (8.4-10.2); Carbon Dioxide 26 mmol/L (22-30); Chloride 104 mmol/L (98-107); Estimated CRCL calculation 80 ml/min; Estimated Glomerular Filt Rate > 60; Glucose 126 mg/dL (65-110); Potassium 4.7 mmol/L (3.4-5.0); Sodium 134 mmol/L (137-145); Total Protein 5.8 g/dL (6.3-8.2)
--- NOTE | 2025-06-14 08:14 | P.PNIM_ITS ---
Progress Note: A&P Assessment and Plan (1) Pneumonia: Code(s): J18.9 - Pneumonia, unspecified organism Status: Acute Assessment and Plan: CXR: Significant interval progression of patchy bilateral pneumonia. - Complicating Factors: COPD exacerbation and recent hospitalization from 05/29- 05/31 - started on cefepime and vancomycin on 06/11, MRSA negative Vanc DC. Started on azithromycin for atypical coverage. now covering for pseudomonas given recent hospitalization and smoking history - Viral PCR: negative for Flu/COVID/RSV - Sputum culture pending - Ordered legionella, mycoplasma and pneumococcal - no supplemental O2 requirement - Monitor vital signs, I&Os, neuro status and patient is a fall risk - Follow WBC, serum electrolytes, temperature curves and cultures Discussed patient with Dr. THURSTON who recommends obtaining a CT chest to reassess patients pneumonia given worsening on admission. CT chest ordered, read pending. Patient states that SOB has resolved and cough has significantly improved since admission. WBC elevated but downtrending likely due to infection and cocurrent steroid use for COPD exacerbation. Will continue to trend. Given recent hospitalization and continued progression of pneumonia despite prior antibiotic he remains on HAP treatment (2) COPD (chronic obstructive pulmonary disease): Qualifiers: COPD type: COPD with acute exacerbation Qualified Code(s): J44.1 - Chronic obstructive pulmonary disease with (acute) exacerbation Code(s): J44.9 - Chronic obstructive pulmonary disease, unspecified Status: Acute Assessment and Plan: CXR: Significant interval progression of patchy bilateral pneumonia. Sputum culture pending Duonebz q6H and Albuterol q2H prn Solu-Medrol 60 mg IVq12H, transitioned to oral prednisone 40 mg daily Monitor vital signs, I&Os, neuro status and patient is a fall risk Monitor serum electrolytes, cultures and CBC Monitor Oxygen saturation, keep SpO2 greater than 88% No wheezing on exam. (3) Elevated liver enzymes: Code(s): R74.8 - Abnormal levels of other serum enzymes Status: Acute Assessment and Plan: LFTs slightly elevated on 06/12 with AST 61 and ALT 67. Tot bili and alk phos WNL. LFTs remain slightly elevated. Repeat CMP in the am. (4) Hypertension: Code(s): I10 - Essential (primary) hypertension Status: Chronic Assessment and Plan: Patient was previously discharged from hospital on 05/31 and was told to hold his home amlodipine 10 mg daily Will continue to hold amlodipine as his blood pressure is within normal range and intermittently borderline hypotensive with sytolic low 100s Continue to monitor (5) BPH (benign prostatic hyperplasia): Code(s): N40.0 - Benign prostatic hyperplasia without lower urinary tract symptoms Status: Acute Assessment and Plan: Continue Flomax Time Spent With Patient Time with patient: 25 - 35 minutes Subjective Date/time seen: 06/14/25 08:14 Interval history: 75-year-old male patient with history of COPD, hypertension and BPH presents to the hospital for shortness of breath. Patient is pleasant sitting up comfortably in bed. He states that he is feeling better today and denies any shortness a breath and notes that the cough is much improved. Patient's other complaints denying chest pain, palpitations, nausea/vomiting, and abdominal pain. Review of Systems Review of Systems: All systems reviewed & are unremarkable except as noted in HPI and below Exam Narrative: AF HR 72 RR 16 SpO2 97 BP 108/72 General: male in no acute respiratory distress who is nontoxic appearing, sitting up in bed. Ambulating throughout the room. HEENT: Normocephalic. Atraumatic. Extraocular movement intact. Sclera clear and anicteric. No facial asymmetry. Chest: Lungs are clear to the upper with slight rhonchi to the bases on auscultation bilaterally, improved from yesterday. No wheezes. CV: Heart was regular rate and rhythm. Abd: Abdomen was soft. Nontender. Nondistended. Positive bowel sounds. Ext: No clubbing, cyanosis, or edema. DP pulses bilaterally. Neuro: Patient is alert and oriented x4. Speech is clear, speaking full sentences. Objective Data Vital Signs Vital Signs: Vital Signs - 24 hr 06/13/25 08:30 06/13/25 08:37 06/13/25 08:39 Temperature Pulse Rate 88 88 Respiratory Rate 16 16 Blood Pressure Pulse Oximetry 94 Oxygen Delivery Room Air Room Air Fraction of Inspired Oxygen 06/13/25 08:44 06/13/25 14:00 06/13/25 14:01 Temperature 96.6 F L Pulse Rate 90 86 86 Respiratory Rate 16 16 16 Blood Pressure 125/51 L Pulse Oximetry 96 Oxygen Delivery Fraction of Inspired Oxygen 06/13/25 14:11 06/13/25 19:46 06/13/25 19:48 Temperature Pulse Rate 88 60 60 Respiratory Rate 16 20 20 Blood Pressure Pulse Oximetry 97 Oxygen Delivery Room Air Fraction of Inspired Oxygen 06/13/25 21:00 06/14/25 01:22 06/14/25 01:31 Temperature 96.9 F L Pulse Rate 77 71 72 Respiratory Rate 20 20 20 Blood Pressure 119/61 Pulse Oximetry 97 Oxygen Delivery Fraction of Inspired Oxygen 06/14/25 05:50 06/14/25 07:09 06/14/25 07:09 Temperature 96.9 F L Pulse Rate 81 68 Respiratory Rate 16 16 Blood Pressure 108/72 Pulse Oximetry 97 97 Oxygen Delivery Room Air Fraction of Inspired Oxygen 21 06/14/25 07:15 Temperature Pulse Rate 72 Respiratory Rate 16 Blood Pressure Pulse Oximetry Oxygen Delivery Fraction of Inspired Oxygen Intake/Output Intake/Output: Intake & Output 06/11/25 06/12/25 06/13/25 06/14/25 23:59 23:59 23:59 23:59 Intake Total 390 1110 2410 550 Balance 390 1110 2410 550 Meds/Results Medications: Active Medications Generic Name Dose Route Start Last Admin Trade Name Freq PRN Reason Stop Dose Admin Acetaminophen 650 mg 06/11/25 16:59 Acetaminophen 325 Mg Tablet PO Q4H PRN Mild Pain (1-3) or Fever Albuterol/Ipratropium 3 ml 06/11/25 14:00 06/14/25 07:08 Ipratropium 0.5 Mg/Albuterol Sulfate 2.5 Mg Ampul.Neb 3 Ml INHALATION 3 ml Q6HRT LAURA Administration Azithromycin 500 mg 06/13/25 09:00 06/13/25 08:32 Azithromycin 250 Mg Tablet PO 06/17/25 09:01 500 mg DAILY LAURA Administration Docusate Sodium 100 mg 06/11/25 17:00 06/13/25 18:15 Docusate Sodium 100 Mg Capsule PO Not Given BID LAURA Enoxaparin Sodium 40 mg 06/12/25 09:00 06/13/25 08:32 Enoxaparin 40 Mg/0.4 Ml Syringe SUB-Q Not Given DAILY LAURA Guaifenesin 1,200 mg 06/11/25 21:00 06/13/25 20:54 Guaifenesin 12 Hr 600 Mg Tabcr PO 1,200 mg Q12HR LAURA Administration Cefepime HCl 2 gm/ Sodium 50 mls @ 100 mls/hr 06/11/25 21:00 06/13/25 21:25 Chloride IVPB Infused Q12HR LAURA Infusion Meclizine HCl 25 mg 06/11/25 19:20 Meclizine Hcl 25 Mg Tablet PO BID PRN Dizziness Methylprednisolone Sodium Succinate 60 mg 06/12/25 18:00 06/14/25 05:49 Methylprednisolone Sod Succ 125 Mg Vial IV PUSH 60 mg Q12H LAURA Administration Ondansetron HCl 4 mg 06/11/25 12:55 Ondansetron Inj 4 Mg/2 Ml Vial IV PUSH Q4H PRN Nausea Tamsulosin HCl 0.4 mg 06/11/25 21:00 06/13/25 20:54 Tamsulosin Hcl 0.4 Mg Capsule PO 0.4 mg QHS LAURA Administration Radiology Results: ITS Impressions Chest X-Ray 06/11/25 12:07 Impression: 1: Significant interval progression of patchy bilateral pneumonia. Labs Labs: Laboratory Results - last 24 hr 06/13/25 06/14/25 10:40 05:17 WBC 15.9 H RBC 3.48 L Hgb 10.9 L Hct 34.1 L MCV 98.0 MCH 31.3 MCHC 32.0 RDW 14.6 H Plt Count 406 H MPV 8.8 Sodium 134 L Potassium 4.7 Chloride 104 Carbon Dioxide 26 Anion Gap 4 BUN 28 H Creatinine 0.69 L Estim Creat Clear Calc 80 Estimated GFR > 60 Glucose 126 H Calcium 8.8 Total Bilirubin 0.3 AST 62 H ALT 168 H Alkaline Phosphatase 80 Total Protein 5.8 L Albumin 2.9 L Urine Pneumococcal Ag Cancelled Quality VTE Prophylaxis VTE prophylaxis: mechanical ordered and pharmacologic ordered
[2025-06-14] MEDS: CEFEPIME 2 GM in SODIUM CHLORIDE 0.9% IV 50 ML 100 ML IVPB ×2 (08:16→20:04)
[2025-06-14] MEDS: guaiFENesin 12 HR 600 MG TABCR 1200 MG PO ×2 (08:17→20:04)
[2025-06-14] MEDS: AZITHROMYCIN 250 MG TABLET 500 MG PO (08:17)
[2025-06-14] MEDS: TAMSULOSIN HCL 0.4 MG CAPSULE PO (20:04)
[2025-06-15 01:28] VITALS: PULSE 62; RESP 20
[2025-06-15] MEDS: IPRATROPIUM 0.5 MG/ALBUTEROL SULFATE 2.5 MG AMPUL.NEB 3 ML INHALATION ×2 (01:28→08:04)
[2025-06-15 01:38] VITALS: PULSE 60; RESP 20
[2025-06-15 05:00] VITALS: BP 139/64; PULSE 75; RESP 16; TEMP 36.6; O2SAT 99
[2025-06-15 05:59] LABS: Hematocrit 34.2 % (42.0-52.0); Hemoglobin 10.6 g/dL (14.0-18.0); Mean Corpuscular HGB Conc 31.0 g/dl (32-36); Mean Corpuscular Hemoglobin 31.5 pg (26-34); Mean Corpuscular Volume 101.8 fl (80-100); Platelet Count Result 385 k/mm3 (150-375); Red Blood Count 3.36 M/mm3 (4.6-6.20); White Blood Count 13.4 K/mm3 (4.5-10.0)
[2025-06-15 06:19] LABS: Alanine Aminotransferase 138 U/L (6-50); Albumin Level 2.9 g/dL (3.5-5.1); Alkaline Phosphatase 56 U/L (38-126); Anion Gap 3 mmol/L (4-12); Aspartate Amino Transferase 42 U/L (17-59); Bilirubin,Total 0.6 mg/dL (0.2-1.3); Blood Urea Nitrogen 26 mg/dL (9-20); Calcium 8.7 mg/dL (8.4-10.2); Carbon Dioxide 26 mmol/L (22-30); Chloride 105 mmol/L (98-107); Estimated CRCL calculation 81 ml/min; Estimated Glomerular Filt Rate > 60; Glucose 87 mg/dL (65-110); Potassium 4.3 mmol/L (3.4-5.0); Sodium 134 mmol/L (137-145); Total Protein 5.9 g/dL (6.3-8.2)
[2025-06-15 08:05] VITALS: PULSE 68; RESP 18
[2025-06-15 08:07] VITALS: PULSE 68; RESP 18; O2SAT 96
--- NOTE | 2025-06-15 09:47 | P.DS_ITS ---
DS: Admitting Diagnosis Discharge Date 06/15/2025 Admitting Diagnosis pneumonia DS: Discharge Diagnosis Discharge Diagnosis (1) Pneumonia: Code(s): J18.9 - Pneumonia, unspecified organism Status: Acute (2) COPD (chronic obstructive pulmonary disease): Qualifiers: COPD type: COPD with acute exacerbation Qualified Code(s): J44.1 - Chronic obstructive pulmonary disease with (acute) exacerbation Code(s): J44.9 - Chronic obstructive pulmonary disease, unspecified Status: Acute (3) Elevated liver enzymes: Code(s): R74.8 - Abnormal levels of other serum enzymes Status: Acute (4) Hypertension: Code(s): I10 - Essential (primary) hypertension Status: Chronic (5) BPH (benign prostatic hyperplasia): Code(s): N40.0 - Benign prostatic hyperplasia without lower urinary tract symptoms Status: Acute DS: Summary Hospital Course Hospital Course: 75-year-old male patient with history of COPD, hypertension and BPH presents to the hospital for shortness of breath. Several issues were addressed: # pneumonia CXR: Significant interval progression of patchy bilateral pneumonia. - Complicating Factors: COPD exacerbation and recent hospitalization from 05/29- 05/31 - started on cefepime and vancomycin on 06/11, MRSA negative Vanc DC. Started on azithromycin for atypical coverage. now covering for pseudomonas given recent hospitalization and smoking history - Viral PCR: negative for Flu/COVID/RSV - Sputum culture pending - Ordered legionella, mycoplasma and pneumococcal - no supplemental O2 requirement - Monitor vital signs, I&Os, neuro status and patient is a fall risk - Follow WBC, serum electrolytes, temperature curves and cultures Discussed patient with Dr. THURSTON who recommends obtaining a CT chest to reassess patients pneumonia given worsening on admission. CT chest ordered, read pending. Patient states that SOB has resolved and cough has significantly improved since admission. WBC elevated but downtrending likely due to infection and cocurrent steroid use for COPD exacerbation. Will continue to trend. Given recent hospitalization and continued progression of pneumonia despite prior antibiotic he remains on HAP treatment Was going to do biopsy today, 06/15- but pt received his am lovenox dose as well as pm last night. IR dept was contacted and biopsy will be schedule for friday at 1100. Pt is to stay off the anticoag until then. Will be discharged with prednisone taper and Levaquin for 4 more doses (he was on Augmentin for his previous admission/discharge). #Hypertension: Patient was previously discharged from hospital on 05/31 and was told to hold his home amlodipine 10 mg daily Will continue to hold amlodipine as his blood pressure is within normal range and intermittently borderline hypotensive with sytolic low 100s Continue to monitor # BPH: Continue Flomax Status at Discharge Functional status at discharge: independent ambulation Overall status at discharge: patient is progressing back to baseline Time Spent with Patient Time attestation: Total time spent providing and/or coordinating discharge services: Time spent: Greater than 30 minutes Exam Narrative: General: male in no acute respiratory distress who is nontoxic appearing, sitting up in bed. Ambulating throughout the room. HEENT: Normocephalic. Atraumatic. Extraocular movement intact. Sclera clear and anicteric. No facial asymmetry. Chest: Lungs are clear to the upper with slight rhonchi to the bases on auscultation bilaterally, improved from yesterday. No wheezes. CV: Heart was regular rate and rhythm. Abd: Abdomen was soft. Nontender. Nondistended. Positive bowel sounds. Ext: No clubbing, cyanosis, or edema. DP pulses bilaterally. Neuro: Patient is alert and oriented x4. Speech is clear, speaking full sentences. Const: General: comfortable DS: Data Data Completed and Pending Labs on day of discharge: Labs from last 24 hours 06/15/25 06/15/25 06/13/25 08:11 05:10 05:09 WBC 13.4 H RBC 3.36 L Hgb 10.6 L Hct 34.2 L MCV 101.8 H MCH 31.5 MCHC 31.0 L RDW 14.7 H Plt Count 385 H MPV 9.2 Sodium 134 L Potassium 4.3 Chloride 105 Carbon Dioxide 26 Anion Gap 3 L BUN 26 H Creatinine 0.68 L Estim Creat Clear Calc 81 Estimated GFR > 60 Glucose 87 POC Capillary Glucose 80 Calcium 8.7 Total Bilirubin 0.6 AST 42 ALT 138 H Alkaline Phosphatase 56 Total Protein 5.9 L Albumin 2.9 L M.pneumoniae IgM Titer <770 Preliminary micro results at discharge 06/11/25 12:34 Blood Culture - Preliminary Blood 06/11/25 12:48 Blood Culture - Preliminary Blood 06/13/25 13:25 Sputum Culture - Preliminary Sputum Discharge Plan Discharge Attending physician on discharge: London Lema Consulting providers: Sari Poe Discharging Clinician: Randi Berger Patient Disposition: Home Activity: may shower Diet: regular Discharge Instructions: Your biopsy was schedule for Friday at 1100am Please avoid all blood thinners until biopsy is completed. Please call and make an deny to a follow up with oncologist, Dr Em. I will send few more doses of prednisone to taper it off: take 20 mg on 06/16, 20 mg on 06/17, 10 mg on 06/18, 10 mg on 06/19 and then stop. Patient Instructions: Antibiotic Form Patient Language: Indonesian Stand Alone Forms: General Discharge Information Follow-up/Referrals: Kunal Em MD [Physician, Hematology] - 3 Weeks Anna Scherer NP [Primary Care Provider, Family Practice] - 2 Weeks Discharge Medications: New levofloxacin 750 mg tablet 750 mg PO DAILY 4 Days Qty: 4 0RF Rx Instructions: next dose 06/15 9pm after that take it daily at bedtime prednisone 10 mg tablet 10 mg PO DIRECTED Qty: 7 0RF Rx Instructions: take 20 mg on 06/16, 20 mg on 06/17, 10 mg on 06/18, 10 mg on 06/19 Continued meclizine 25 mg tablet 25 mg PO BID PRN (Reason: dizziness) Qty: 180 1RF tamsulosin 0.4 mg capsule 0.4 mg PO QHS Qty: 90 3RF albuterol sulfate 90 mcg/actuation HFA aerosol inhaler 1 - 2 inh inhalation Q4-6H PRN (Reason: shortness of breath or wheezing) Qty: 8.5 11RF Held amlodipine 10 mg tablet 10 mg PO DAILY Qty: 90 3RF Hold Instructions: Resume on 06/23/25. hold until f/u with pcp. monitor BP daily Discontinued prednisone 20 mg tablet 40 mg PO DAILY Qty: 10 0RF Date of admission: 06/12/25 10:42 Primary Care Provider: Anna Scherer Admitting Provider: London Lema Attending physician on admission: London Lema Condition: Stable Quality VTE Prophylaxis VTE prophylaxis: mechanical ordered and pharmacologic ordered Hospitalist MIPS Heart Failure (Exclusion) Patient has history of Heart Transplant or Left Ventricular Assistive Device?: No IF YES, STOP HERE Heart Failure (Qualifier) Patient has current or prior documentation of LVEF less than or equal to 40%, or mod/servere depressed LVSF?: No IF NO, STOP HERE
[2025-06-15] MEDS: CEFEPIME 2 GM in SODIUM CHLORIDE 0.9% IV 50 ML 100 ML IVPB (09:58)
[2025-06-15] MEDS: guaiFENesin 12 HR 600 MG TABCR 1200 MG PO (10:06)
[2025-06-15] MEDS: AZITHROMYCIN 250 MG TABLET 500 MG PO (10:06)
== END 2025-06-15 13:10 | disposition home or self-care (01) | DRG 194 ==
LOC: ANHED 13:05 → ANH3MEDSUR 13:33
PROVIDERS: Nurse Practitioner Gerontology; Student in an Organized Health Care Education/Training Program; Admitting Provider General Practice; Emergency Provider Emergency Medicine; PCP Nurse Practitioner Family; Visit Provider Nurse Practitioner
DX: J18.9 Pneumonia, unspecified organism (principal); J44.0 Chronic obstructive pulmonary disease with (acute) lower respiratory infection; J44.1 Chronic obstructive pulmonary disease with (acute) exacerbation; J43.9 Emphysema, unspecified; D72.829 Elevated white blood cell count, unspecified; F17.210 Nicotine dependence, cigarettes, uncomplicated; I10 Essential (primary) hypertension; R73.03 Prediabetes; N40.0 Benign prostatic hyperplasia without lower urinary tract symptoms; R74.8 Abnormal levels of other serum enzymes; Z20.822 Contact with and (suspected) exposure to COVID-19; Z79.51 Long term (current) use of inhaled steroids; Z79.899 Other long term (current) drug therapy
CPT/HCPCS: 36415; 71046; 71250; 80048; 80053; 80202; 81001; 82948; 83605; 83735; 83880; 84145; 84484; 85025; 85027; 85610; 85730; 86140; 86738; 87040; 87070; 87205; 87449; 87637; 87641; 87899; 93005; 94640; 96365; 96367; 96375; 96376; 99285; A9270; G0378; J0692; J1650; J2919; J3373; J7512

== ENCOUNTER 2025-10-03 16:15 | Outpatient (CLI) | payer MEDICARE, OTHER, SELFPAY ==
--- NOTE | ~2025-10-03 | CT_ITS ---
CT diagnostic chest wo con HISTORY:J18.9 - Pneumonia, unspecified organism COMPARISON: 06/14/2025 TECHNIQUE: Axial images of the chest were obtained without infusion of intravenous contrast. Dose optimization technique was utilized. FINDINGS: The examination demonstrates apical scarring bilaterally are stable. Spiculated nodule in the left upper lobe has resolved. Right middle lobe nodule is stable measuring 1.5 cm on axial image 84. Pleural-based nodule in the left lower lobe has resolved. There is decrease in size of nodules within the left lower lobe. Paraseptal emphysema are noted. Mild bronchiectasis is seen. There is increase in tree-in-bud opacities bilaterally most significant in the lower lobes.. Cardiac size and mediastinal configuration are normal in appearance. No hilar or mediastinal lymphadenopathy is seen. The thoracic aorta is normal in caliber. Osseous structures are intact. IMPRESSION: Decrease in size or resolution of pulmonary nodules bilaterally. There is increase in tree-in-bud opacities bilaterally. All CT scans at this facility are performed using low dose modulation techniques as appropriate to perform exam including the following: automated exposure control; use of iterative reconstruction technique; adjustment of the mA and/or kV according to patient size (this includes techniques or standardized protocols for targeted exams where dose is matched to indication/reason for exam). Reviewed, dictated and finalized at location [facility] IMPRESSION: Decrease in size or resolution of pulmonary nodules bilaterally. There is increase in tree-in-bud opacities bilaterally. All CT scans at this facility are performed using low dose modulation techniqu es as appropriate to perform exam including the following: automated exposure c ontrol; use of iterative reconstruction technique; adjustment of the mA and/or kV according to patient size (this includes techniques or standardized protocol s for targeted exams where dose is matched to indication/reason for exam).
--- OUTSIDE RECORDS SUMMARY | 2025-10-03 18:11 | XMS_ITS | Clinical Summary ---
Author Organization [facility] Address [facility] [place] [address] Care Team Providers Care Television Camera Operator Name Role Phone Unavailable Primary Care [...] of 2) 02/03/2002 COVID-19 Vaccine ( - 2024-2 6 season) 2025 Influenza Adult (#1) 2025 RSV Immunization or 60+ Years (1 - 1-dose 75+ series) 02/03/2027 Hepatitis A Vaccines Aged Out No long er eligible based on patient's age to complete this topic Meningococcal B Vaccine Aged Out No l onger eligible based on patient's age to complete this topic Meningococcal Vaccine Aged Out No melba fabi eligible based on patient's age to complete this topic RSV Immunizations Under 20 Months Aged Out No longer eligible based on patient's age to complete this topic
== END 2025-10-03 16:16 | disposition home or self-care (01) ==
PROVIDERS: PCP Nurse Practitioner Family; Visit Provider Nurse Practitioner
DX: J18.9 Pneumonia, unspecified organism (principal)
CPT/HCPCS: 71250